=== PATIENT | male | born 1960 | race Caucasian/White ===

== ENCOUNTER 2017-10-08 03:08 | Inpatient (IN) | payer OTHER, SELFPAY ==
[2017-10-08] VITALS (8 sets, daily range): BP systolic 116–163; BP diastolic 73–94; PULSE 67–76; RESP 16–18; TEMP 37–37.9; O2SAT 94–99; BMI 31.5; BMI 31.4
--- NOTE | 2017-10-08 03:24 | CT_ITS ---
STUDY: CT ABDOMEN AND PELVIS WITH CONTRAST REASON FOR EXAM: Male, 56 years old. Pain RADIATION DOSAGE (If Supplied By Facility): CTDIvol = ( 14.04 ) mGy, DLP = ( 980.66 ) mGycm TECHNIQUE: Transaxial images were obtained from the dome of the diaphragm to the symphysis pubis without oral contrast. 100 ml of Isovue 300 contrast was administered. Sagittal and coronal images were reconstructed. Individualized dose optimization techniques were used for this CT. COMPARISON: None. FINDINGS: The visualized lung bases are unremarkable. Mild cardiomegaly. Median sternotomy wires. There is decreased attenuation of the liver consistent with steatosis. Normal gallbladder and extrahepatic biliary system. Normal spleen. Normal pancreas. Pneumoperitoneum. Normal bilateral adrenal glands. Bilateral renal cysts and multiple right sided nonobstructing renal calculi, the largest measuring 5 mm. Normal visualized stomach. Normal small intestine. Acute sigmoid diverticulitis. Perforation is likely present along the medial sigmoid wall. An evolving diverticular abscess is suggested on image 95 of series 2 that measures approximately 3.6 x 3.2 cm. The appendix is visualized and appears normal. Normal abdominal aorta. Normal inferior vena cava. Normal retroperitoneum. Normal urinary bladder. Free pelvic fluid. Normal abdominal wall. Normal osseous structures. CT/Abdomen/Pelvis W IV Cont ONLY IMPRESSION: Acute sigmoid diverticulitis with associated perforation, abscess formation, and pneumoperitoneum. N.B. : The above information has been verbally conveyed by Mekhi Wen MD to Ismael Mike, Covering Physician, on 10/08/2017 05:14:36 (ET). Electronically Signed: Mekhi Wen MD at 5:13 EDT Tel , Service support , N.B. : The above information has been verbally conveyed by Mekhi Wen MD to Ismael Mike, Covering Physician, on 10/08/2017 05:14:36 (ET).
[2017-10-08] MEDS: Ondansetron 4 MG/2 ML Vial IV (03:41)
[2017-10-08] MEDS: Morphine 4 MG/ML Syringe IV (03:41)
[2017-10-08] MEDS: 0.9% Normal Saline 1,000 ML 1000 ML IV (03:41)
[2017-10-08 03:45] LABS: Absolute Lymphocyte Count 0.45 X10^3/ul (0.83-4.51); Absolute Neutrophil Count 9.4 X10^3/uL (2.0-7.7); Basophil# 0.01 X10^3/uL; Basophil% 0.1 % (0-1); Differential Indicated SCAN CRITERIA MET; Eosinophil# 0.01 X10^3/uL; Eosinophils% 0.1 % (0-5); Hematocrit 42.1 % (40-54); Hemoglobin 14.5 g/dl (13.0-16.5); Lymphocyte # 0.45 X10^3/ul (4.0); Lymphocyte % 4.3 % (19-41); Mean Corp Hgb Conc 34.4 g/gl (32-36); Mean Corpuscular Hgb 31.3 pg (27.0-32.0); Mean Corpuscular Volume 90.7 fL (80-94); Mean Platelet Vol. 9.8 fl (6.2-12.0); Monocyte# 0.49 X10^3/uL; Monocyte% 4.7 % (0-10); Neutrophil # 9.44 X10^3/uL (2.7-7.7); Neutrophil % 90.7 % (47-70); POSITIVE COUNT NO; POSITIVE DIFFERENTIAL YES; POSITIVE MORPHOLOGY NO; Platelet Count 198 K/mm3 (150-450); RBC Distribution Width CV 14.5 % (11.6-14.6); RBC Distribution Width SD 48.2 fl (35.1-43.9); Red Blood Count 4.64 M/mm3 (4.6-6.2); White Blood Count 10.4 K/mm3 (4.4-11.0)
[2017-10-08 03:53] LABS: Anion Gap 9 (5-15); BUN 24 mg/dL (7-18); BUN/Creat Ratio 15.4 RATIO (10-20); Calcium,Total 8.9 mg/dL (8.5-10.1); Chloride 106 mmol/L (98-107); Creatinine, Serum 1.56 mg/dL (0.70-1.30); EST Glomerular Filtration Rate 49 mL/min (>60); Est Glom Filt Rate - Afr Amer 60 mL/min (>60); Glucose 151 mg/dL (74-106); Potassium 3.9 mmol/L (3.5-5.1); Sodium Level 143 mmol/L (136-145)
[2017-10-08 04:10] LABS: Differential Comment SCANNED
[2017-10-08 04:40] LABS: Bacteria 0 SEEN /hpf (None Seen); Mucous, Urine 0 SEEN /hpf (<or=2+); Red Blood Cells-Urine 0 SEEN /hpf (0-5); White Blood Cells 0 SEEN /hpf (0-5)
[2017-10-08 04:50] LABS: Color, Urine Yellow (Yellow); Glucose, Dipstick Normal (Normal); Ketone-Dipstick Negative (Negative); Urine Bilirubin Dipstick Negative (Negative); Urine Clarity Sl Cloudy (Clear)
[2017-10-08 04:51] LABS: Leukocyte Esterase-Dipstick Negative /ul (Negative); Nitrite-Dipstick Negative (Negative); Occult Blood-Urine Negative /ul (Negative); Protein-Dipstick 15 mg/dl (Negative); Urine Urobilinogen Normal (Normal)
[2017-10-08 04:55] LABS: Squamous Epithelial Cells - UA 0-5 SEEN /hpf (0-5)
--- NOTE | 2017-10-08 05:28 | ED.DCSUM_ITS ---
- ER Visit Summary Date of Service: 10/08/17 Chief Complaint: Acute left lower quadrant abdominal pain History of Present Illness: The patient is a 56 M who has history of diverticulitis ?2 who presents with acute onset of left lower quadrant pain with discomfort in the abdomen with urination, discomfort with walking or coughing and discomfort with palpation. He denies fever, chills night sweats. Denies any visual, ocular auditory symptoms. Denies chest pain or palpitations. He has a chronic cough. Respiratory otherwise negative. He states he had one loose bowel movement earlier this evening. He denies any back pain. Denies any skin lesions. He has no other complaints. Per review of prior records he has his coronary disease, hypertension, diabetes , diverticulosis/diverticulitis, renal calculus and gout. He does have history of coronary bypass surgery. Physical Examination: Vital signs are unremarkable except for a blood pressure 163/94. He is afebrile. He appears uncomfortable with movement and walking. HEENT exam is remarkable for poor dentition. Trachea midline. Insert cardiopulmonary exam. Abdomen is slightly distended tympanitic with peritonitis especially left lower quadrant. There is no evidence of inguinal lymphadenopathy or hernia. He has no CVA tenderness noted. There is no evidence of trauma. He has no skin lesions. Neuro exam is nonfocal. Test Results: White count is 10.4 thousand with 91 segs. Electro panel is remarkable for a creatinine 1.56 and glucose of 151. UA is unremarkable. CT of the abdomen reveals acute diverticulitis with probable early pelvic abscess and free air. Emergency Department Course and Treatment: IV was established he was medicated with 4 mg of Zofran and 4 mg of morphine. Because he has peritonitis with left lower quadrant pain concern he has diverticulitis and he received 4.5 g of Zosyn IV piggyback. CT of the abdomen was obtained to evaluate for acute diverticulitis. Patient was informed of his test results. Upon further questioning states he had significant pain 2-3 weeks ago. Treatment Plan: Dr. Hinojosa was placed on page since patient has perforation. He will require admission. Will contact the hospitalist as well. Disposition: To be admitted with consultation with hospitalist for admission and surgeon Impression: 1. Acute diverticulitis with perforation 2. Pelvic abscess 3. Hyperglycemia and diabetic 4. Renal insufficiency 5. History of coronary disease This note was generated with Dragon dictation software. It may contain incorrect words, spelling, and punctuation that were not noted in review of the chart prior to signing ED Disposition - Plan for ED Patient: Chief Complaint: Abd Pain Referrals: Care Physician,No Primary [Primary Care Provider] -
--- NOTE | 2017-10-08 06:22 | HP.PCM_ITS ---
Problem List (1) History of heart surgery Status: Chronic (2) Diverticulitis Status: Acute History of Present Illness Date of Admission: 10/08/17 Chief Complaint: abdominal pain The patient is a 56 year old male patient with a significant past medical history of diverticular disease who was in [facility] 3 weeks ago presents with a similar complaint of abdominal pain. Onset of his pain in the left lower quadrant began last night at 10:00pm. He denies feeling nauseous and or short of breath. He denies fevers or chills. CT scan of the abdomen reveals sigmoid diverticulitis that was perforated with pneumoperitoneum present. There is an abscess formation of just over 3cm in diameter in this area as well. The patient last stayed 14 days in the hospital for a similar reason that required percutaneous drainage. Dr boyd has seen and evaluated the patient and requested he be placed on bowel rest and zosyn and he will see the patient in consult. Past Medical History Past Medical History (Chronic Problems): Chronic Problems History of heart surgery (Chronic) Allergies chlorhexidine Allergy (Verified 10/08/17 03:08) Unknown Home Medications: Ambulatory Orders Medication Instructions Recorded Allopurinol [Zyloprim] 300 mg PO DAILY 04/20/15 Amlodipine [Norvasc] mg PO DAILY 04/20/15 Aspirin [Aspirin, Baby] 81 mg PO DAILY@0800 04/20/15 Cardizem 120 mg PO DAILY 04/20/15 Multivitamin,Therapeutic [Thera] 1 each PO DAILY 10/08/17 Surgical History: - - cardiac surgery x 2 to repair VSD and other similar hole unclear if it was a PFO or other, previous percutaneous drainage of diverticular abscess Smoking Status: Former smoker - *Family History Maternal History Items: No pertinent history Review of Systems Constitutional: Denies: Chills, Fever, Weight Change HEENT: Denies: Head Aches, Sinus Congestion, Sinus Drainage Cardiovascular: Denies: Chest Pain, Palpitations Respiratory: Denies: Cough, Shortness of breath at rest, Sputum production Gastrointestinal: Reports: Abdominal Pain. Denies: Nausea, Vomiting Genitourinary: Denies: Dysuria Musculoskeletal: Denies: Joint Pain, Joint Tenderness Skin: Denies: Rash, Wounds Neurological: Denies: Numbness, Tingling, Focal weakness Psychiatric: Denies: Anxiety, Depression, Homicidal Ideations, Suicidal Ideations Hematologic/ Lymphatic: Denies: Easy Bruising, Easy Bleeding VTE Information - Inpt Only VTE Present on Admission: No VTE Mechan Device Prophylaxis: None VTE Pharm Prophylaxis ordered?: Yes Patient Problems: Active and Suspected Problems Diverticulitis (Acute) - Physical Exam General: Alert, Oriented x3, Cooperative HEENT: Atraumatic, Normocephalic Neck: Supple Lungs: Clear to auscultation, Normal air movement, No rhonchi, No wheeze, No rales Cardiovascular: Regular rate, Regular Rhythm, Normal S1, Normal S2, No murmurs Abdomen: Bowel Sounds Present, Soft, Guarding - LLQ, Tender - lower quadrant ( left) Extremities: No edema, Capillary Refill Less than 3 Seconds Skin: No rashes Musculoskeletal: No Tenderness to Palpation of Joints or Extremities Neurological: Neuro grossly intact Psych/Mental Status: Normal Affect, Appropriate Vital Signs Temp Pulse Resp BP Pulse Ox 98.8 F 76 18 158/90 H 96 10/08/17 03:08 10/08/17 05:25 10/08/17 05:25 10/08/17 05:25 10/08/17 05:25 Oxygen Delivery Method Room Air Weight: 195 lb 8.8 oz Body Mass Index (BMI) 31.5 Laboratory Tests Past 24 Hrs 10/08/17 10/08/17 10/08/17 03:30 03:30 04:35 WBC 10.4 RBC 4.64 Hgb 14.5 Hct 42.1 MCV 90.7 MCH 31.3 MCHC 34.4 RDW 14.5 RDW Differential 48.2 H Plt Count 198 MPV 9.8 Immature Gran % (Auto) 0.100 Neut % (Auto) 90.7 H Lymph % (Auto) 4.3 L [place] % (Auto) 4.7 Eos % (Auto) 0.1 Baso % (Auto) 0.1 Absolute Neuts (auto) 9.4 H Absolute Lymphs (auto) 0.45 L Total Counted Not Reportable Differential Comment SCANNED Sodium 143 Potassium 3.9 Chloride 106 Carbon Dioxide 28.0 Anion Gap 9 BUN 24 H Creatinine 1.56 H Est GFR (MDRD) Af Amer 60 Est GFR (MDRD) Non-Af 49 L BUN/Creatinine Ratio 15.4 Glucose 151 H Calcium 8.9 Urine Color Yellow Urine Clarity Sl Cloudy Urine pH 6.0 Ur Specific [place] 1.010 Urine Protein 15 H Urine Glucose (UA) Normal Urine Ketones Negative Urine Occult Blood Negative Urine Nitrite Negative Urine Bilirubin Negative Urine Urobilinogen Normal Ur Leukocyte Esterase Negative Urine RBC 0 SEEN Urine WBC 0 SEEN Ur Squamous Epith Cells 0-5 SEEN Urine Bacteria 0 SEEN Urine Mucus 0 SEEN Assessment/Plan All Active Problems Diverticulitis (Acute) Chronic conditions - Gout - HTN - tobacco abuse (occasional cigar) Plan - admit to medical surgical floor - consult Dr Boyd - NPO - zosyn 3.375 IV q 6hrs - dilaudid 1mg IV q 3 hrs prn pain - zofran 4mg IV q 6 prn - CBC, CMP in am - monitor BP at prn medication IV if necessary - LMWH for DVT prophylaxis - IV D51/2 NS with 20meq KCl at 100cc/hours Code Visit Inpatient E&M: 82481 Init Hosp L3
[2017-10-08] MEDS: HYDROmorphone 0.5 MG/0.5 ML SYRINGE 1 MG IV ×2 (07:44→16:56)
[2017-10-08] MEDS: Enoxaparin 40 MG/0.4 ML Syringe SC (09:52)
--- NOTE | 2017-10-08 11:22 | PCM.PN.BLA ---
Progress Note The patient was admitted earlier today by Dr. Ramirez and I reviewed his H&P. I also saw the patient, evaluated him and obtained relevant history, performed a clinical exam reviewed diagnostic data. This is a 56-year-old male who presented with abdominal pain and found to have acute sigmoid diverticulitis with associated perforation/ abscess. He is currently on IV Zosyn and Dr. Hinojosa has been consulted.
--- NOTE | 2017-10-08 12:33 | CASEMGMT ---
See RN CM Assessment Link. DC PLAN: HOME. No dc needs identified. Kingsley NGUYENN RN ACM
[2017-10-08] MEDS: Piperacil/Tazobactam 3.375 GM/50 ML ML IV ×2 (12:52→21:04)
[2017-10-08] MEDS: 0.9% NaCl Peripheral Flush Adult/Peds IV (16:56)
--- NOTE | 2017-10-08 17:42 | CON.PCM_ITS ---
Reason for Consult Date of Consultation: 10/08/17 History of Present Illness: The patient is a 56 year old M with a complaint of recurring left lower quadrant pain. The patient has had by his own account 3 significant episodes of diverticulitis. most recently, he developed left lower quadrant pain and was admitted to [facility] with a diagnosis of diverticulitis. He understands there was a pericolonic abscess which required percutaneous drainage. He recalls he was in the hospital for 14 days. At discharge, he was recommended that he follow up for colonoscopy as an outpatient and then for consideration of sigmoid resection. He failed follow-up with that visit. He has not hit appears that he underwent CT scan with percutaneous drainage in March. Approximate on April 06, 2017 at [facility].ad a previous colonoscopy. He now presents with a recurring episode of left lower quadrant pain consistent with his previous diverticulitis attacks. He notes no nausea or vomiting. He noted some low-grade fever. CT scan demonstrated sigmoid diverticulitis with what appeared to be extracolonic air and fluid, but not getting organized abscess. He was also negative. A scant amount of free air up around the liver. I was contacted for evaluation, given this history of complicated diverticulitis. the patient has a history of an atrial septal defect and pulmonary artery stenosis. The patient initially had pulmonary artery banding and a ventricular septal defect repair as a child. In 2013. The patient returned with moderately symptomatic shortness of breath, and a larger atrial septal defect along with a stenotic pulmonary artery at the bifurcation. The primary stenosis was noted to be in the right pulmonary artery and the left distal pulmonary artery was dilated. patient underwent reoperation second open heart surgery with atrial septal defect closure and pulmonary artery repair. it appears this repair was performed with running suture and no true graft material was placed. 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 he also has a history of kidney stones, hyperlipidemia, hypertension and gout. Past Medical History Past Medical History (Chronic Problems): Chronic Problems History of heart surgery (Chronic) Allergies chlorhexidine Allergy (Verified 10/08/17 03:08) Unknown Home Medications: Ambulatory Orders Medication Instructions Recorded Allopurinol [Zyloprim] 300 mg PO DAILY 04/20/15 Amlodipine [Norvasc] 2.5 mg PO DAILY 04/20/15 Aspirin [Aspirin, Baby] 81 mg PO DAILY@0800 04/20/15 Diltiazem HCl [Diltiazem ER] 120 mg PO DAILY 10/08/17 Multivitamin,Therapeutic [Thera] 1 each PO DAILY 10/08/17 Surgical History: - - cardiac surgery x 2 to repair VSD and other similar hole unclear if it was a PFO or other, previous percutaneous drainage of diverticular abscess Smoking Status: Former smoker - *Family History Maternal History Items: No pertinent history Review of Systems Constitutional: Reports: Fever, Malaise. Denies: Chills, Weight Change HEENT: Denies: Head Aches, Sinus Congestion, Sinus Drainage Cardiovascular: Denies: Chest Pain, Palpitations Respiratory: Denies: Cough, Shortness of breath at rest, Sputum production Gastrointestinal: Reports: Abdominal Pain. Denies: Nausea, Vomiting Genitourinary: Denies: Dysuria Musculoskeletal: Denies: Joint Pain, Joint Tenderness Skin: Denies: Rash, Wounds Neurological: Denies: Numbness, Tingling, Focal weakness Psychiatric: Denies: Anxiety, Depression, Homicidal Ideations, Suicidal Ideations Hematologic/ Lymphatic: Denies: Easy Bruising, Easy Bleeding Patient Problems: Active and Suspected Problems Diverticulitis (Acute) - Physical Exam General: Alert, Oriented x3, - - somewhat disheveled appearing HEENT: Atraumatic, PERRLA, EOMI, - Oral: - - oropharynx with multiple dentition issues Lungs: Clear to auscultation, Normal air movement Cardiovascular: Regular rate, No murmurs Abdomen: Bowel Sounds Present, Soft, Tender - in the left lower quadrant without diffuse peritoneal signs Vital Signs Temp Pulse Resp BP Pulse Ox 100.3 F H 67 18 130/84 H 99 10/08/17 12:51 10/08/17 12:51 10/08/17 12:51 10/08/17 12:51 10/08/17 12:51 Oxygen Delivery Method Room Air Weight: 88.4 kg Body Mass Index (BMI) 31.4 Intake and Output for Last 24 Hours 10/06/17 10/07/17 10/08/17 23:59 23:59 23:59 Intake Total 494 / 494 Output Total 450 / 450 Balance 44 / 44 Assessment/Plan All Active Problems Diverticulitis (Acute) recurrent diverticulitis with pericolonic abscess-no signs of obstructive pattern. This admission scant extra colonic free air The patient admitted and started on IV antibiotics and bowel rest. We will follow him clinically. I would anticipate that he will require repeat CT scan in the next few days and likely have a percutaneously drainable abscess at that time. This does not appear to be quite ready for drainage currently. I discussed with the patient the fact that it with multiple courses of relatively , diverticulitis, we should really consider resection after this event. Hopefully, he will follow conservative management with IV antibiotics, bowel rest, plus or minus possible percutaneous drainage at which point we'll not have to proceed with urgent resection. we discussed that if his symptoms worsen and he did require urgent exploration, this would might result in a resection with temporary ostomy. 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 His cardiac exam seemed regular. Given his history consider echocardiogram.
[2017-10-09] MEDS: HYDROmorphone 0.5 MG/0.5 ML SYRINGE 1 MG IV ×2 (01:50→21:17)
[2017-10-09 02:02] VITALS: BP 128/73; PULSE 72; RESP 17; TEMP 37; O2SAT 98
[2017-10-09] MEDS: Piperacil/Tazobactam 3.375 GM/50 ML ML IV ×3 (05:04→21:17)
--- NOTE | 2017-10-09 06:19 | ECHOD_ITS ---
Reason For Study: ASD Procedure This was a 2D Doppler, Color Flow transthoracic echocardiogram. Exam performed portable in patient room. Left Ventricle Normal LV size. Mild concentric left ventricular hypertrophy. Left ventricular systolic function is normal. The estimated ejection fraction is 55 %. No evidence for diastolic dysfunction. No regional wall motion abnormalities noted. Mitral Valve Normal mitral valve. Mild (1+) eccentric mitral valve insufficiency. Tricuspid Valve Normal tricuspid valve. Mild (1+) tricuspid valve insufficiency. Pulmonary artery systolic pressure is 29 mmHg. Aortic Valve Cannot exclude bicuspid aortic valve. Great Vessels Mildly dilated aortic root. The pulmonary artery is normal size. Normal inferior vena cava. Pericardium/Pleural No pericardial effusion. MMode/2D Measurements & Calculations LVIDd: 5.3 cm IVSd: 1.2 cm Ao root diam: 3.7 cm LVIDs: 3.4 cm LVPWd: 1.2 cm RVDd: 5.3 cm FS: 36.0 % LAV(MOD-bp): 50.0 ml RVOT diam: 2.0 cm EDV(MOD-sp4): 93.7 ml LAV(MOD-bp) Indexed: 25.3 ml/m2 ESV(MOD-sp4): 39.5 ml LAV(MOD-sp2): 52.7 ml EF(MOD-sp4): 57.8 % LAV(MOD-sp4): 40.3 ml SV(MOD-sp4): 54.2 ml LA A4 area: 16.5 cm2 RA A4 area: 18.7 cm2 Doppler Measurements & Calculations MV E max leander: 84.5 cm/sec Lat Peak E' Leander: 11.9 cm/sec Med Peak E' Leander: 6.6 cm/sec MV A max leander: 76.1 cm/sec E/E' lat: 7.1 E/E' med: 12.7 MV E/A: 1.1 Ao V2 max: 169.0 cm/sec LV V1 max: 119.7 cm/sec PA V2 max: 132.3 cm/sec Ao max P.4 mmHg LV V1 max P.7 mmHg PA max PG (full): 4.8 mmHg Ao V2 mean: 119.4 cm/sec PA V2 mean: 96.1 cm/sec Ao mean P.2 mmHg PA mean PG (full): 2.6 mmHg Ao V2 VTI: 31.8 cm PA V2 VTI: 26.2 cm PI end-d leander: 95.5 cm/sec SV(RVOT): 53.9 ml TR max leander: 254.7 cm/sec TR max P.9 mmHg Interpretation Summary Normal LV size. Mild concentric left ventricular hypertrophy. Left ventricular systolic function is normal. The estimated ejection fraction is 55 %. No evidence for diastolic dysfunction. Mild (1+) tricuspid valve insufficiency. Mildly dilated aortic root. Ordering Physician: Eron Boyd Performed By: Oksana Baltazar, ZENA, RVT
[2017-10-09 06:41] LABS: Absolute Neutrophil Count 6.4 X10^3/uL (2.0-7.7); Basophil# 0.01 X10^3/uL; Basophil% 0.1 % (0-1); Eosinophil# 0.07 X10^3/uL; Eosinophils% 0.9 % (0-5); Hematocrit 38.2 % (40-54); Hemoglobin 12.6 g/dl (13.0-16.5); Lymphocyte % 7.7 % (19-41); Mean Corpuscular Hgb 30.9 pg (27.0-32.0); Mean Corpuscular Volume 93.6 fL (80-94); Mean Platelet Vol. 10.1 fl (6.2-12.0); Monocyte# 0.65 X10^3/uL; Monocyte% 8.4 % (0-10); Neutrophil # 6.43 X10^3/uL (2.7-7.7); Neutrophil % 82.8 % (47-70); Platelet Count 137 K/mm3 (150-450); RBC Distribution Width CV 14.7 % (11.6-14.6); RBC Distribution Width SD 50.2 fl (35.1-43.9); Red Blood Count 4.08 M/mm3 (4.6-6.2); White Blood Count 7.8 K/mm3 (4.4-11.0)
[2017-10-09 06:46] LABS: POSITIVE COUNT NO; POSITIVE MORPHOLOGY NO
[2017-10-09 06:48] LABS: Differential Indicated SCAN CRITERIA MET; POSITIVE DIFFERENTIAL YES
[2017-10-09 06:58] LABS: Differential Comment SCANNED
[2017-10-09 07:01] LABS: AST(SGOT) 19 U/L (15-37); Alanine Aminotransfer ALT/SGPT 35 U/L (16-61); Albumin, Serum 3.3 g/dL (3.2-5.0); Alkaline Phosphatase 91 U/L (45-117); Anion Gap 4 (5-15); BUN 21 mg/dL (7-18); BUN/Creat Ratio 12.7 RATIO (10-20); Calcium,Total 8.1 mg/dL (8.5-10.1); Chloride 108 mmol/L (98-107); Creatinine, Serum 1.65 mg/dL (0.70-1.30); EST Glomerular Filtration Rate 46 mL/min (>60); Est Glom Filt Rate - Afr Amer 56 mL/min (>60); Globulin 3.2 g/dL (2.2-4.2); Glucose 129 mg/dL (74-106); Potassium 3.8 mmol/L (3.5-5.1); Protein, Total 6.5 g/dL (6.4-8.2); Sodium Level 143 mmol/L (136-145)
[2017-10-09 07:12] VITALS: BP 118/76; PULSE 75; RESP 18; TEMP 37.3; O2SAT 95
[2017-10-09] MEDS: Enoxaparin 40 MG/0.4 ML Syringe SC (09:54)
[2017-10-09 13:09] VITALS: BP 114/72; PULSE 74; RESP 18; TEMP 37.5; O2SAT 95
--- NOTE | 2017-10-09 16:28 | PCM.PN.HOSP ---
Patient Problems: Active and Suspected Problems Diverticulitis (Acute) Subjective: CC: Abdominal pain Objective: His abdominal pain has improved, he rates this as 4 out of 10 today, denies any nausea vomiting or diarrhea. He is tolerating IV antibiotics for complicated diverticulitis. Vitals/I&O's: Vital Signs Temp Pulse Resp BP Pulse Ox 99.5 F H 74 18 114/72 95 10/09/17 13:09 10/09/17 13:09 10/09/17 13:09 10/09/17 13:09 10/09/17 13:09 Oxygen Delivery Method Room Air Weight: 88.4 kg Body Mass Index (BMI) 31.4 Intake and Output for Last 24 Hours 10/07/17 10/08/17 10/09/17 23:59 23:59 23:59 Intake Total 1007 / 1007 1892 / 1892 Output Total 800 / 800 1050 / 1050 Balance 207 / 207 842 / 842 General: Alert, Oriented x3 HEENT: Atraumatic Oral: Moist Mucosa Neck: Supple Lungs: Clear to auscultation Cardiovascular: Regular rate, Normal S1, Normal S2 Abdomen: Bowel Sounds Present, Soft, Non Tender, Non-Distended Laboratory Results 10/09/17 05:40: WBC 7.8, RBC 4.08 L, Hgb 12.6 L, Hct 38.2 L, MCV 93.6, MCH 30.9, MCHC 33.0, RDW 14.7 H, RDW Differential 50.2 H, Plt Count 137 L, MPV 10.1, Immature Gran % (Auto) 0.100, Neut % (Auto) 82.8 H, Lymph % (Auto) 7.7 L, [place] % (Auto) 8.4, Eos % (Auto) 0.9, Baso % (Auto) 0.1, Absolute Neuts (auto) 6.4, Absolute Lymphs (auto) 0.60 L, Total Counted Not Reportable, Differential Comment SCANNED 10/09/17 05:40: Sodium 143, Potassium 3.8, Chloride 108 H, Carbon Dioxide 31.0, Anion Gap 4 L, BUN 21 H, Creatinine 1.65 H, Est GFR (MDRD) Af Amer 56 L, Est GFR (MDRD) Non-Af 46 L, BUN/Creatinine Ratio 12.7, Glucose 129 H, Calcium 8.1 L, Total Bilirubin 1.40 H, AST 19, ALT 35, Alkaline Phosphatase 91, Total Protein 6.5, Albumin 3.3, Globulin 3.2, Albumin/Globulin Ratio 1.0 Current Medications Enoxaparin Sodium (Lovenox) 40 mg SC DAILY@1000 RENUKA Last Admin: 10/09/17 09:54 Dose: 40 mg Hydromorphone HCl (Dilaudid Inj) 1 mg IV Q3H PRN PRN PRN Reason: SEVERE PAIN (6-10/10) Last Admin: 10/09/17 01:50 Dose: 1 mg Potassium Chloride/Dextrose/Sod Cl (Kcl 20meq In D5.45ns 1000ml) 1,000 mls @ 100 mls/hr IV .Q10H [facility] Last Admin: 10/09/17 12:00 Dose: 100 mls/hr Piperacillin Sod/Tazobactam Sod (Zosyn) 3.375 gm in 50 mls @ 12.5 mls/hr IV Q8 [facility] Last Admin: 10/09/17 13:12 Dose: 12.5 mls/hr Magnesium Hydroxide (Milk Of Magnesia) 30 ml PO DAILY PRN PRN PRN Reason: Constipation Ondansetron HCl (Zofran) 4 mg IV Q6H PRN PRN PRN Reason: NAUSEA Sodium Chloride () 5 - 30 ml IV UD PRN PRN Reason: SALINE FLUSH Last Admin: 10/08/17 16:56 Dose: 10 ml Medical Necessity - Tobacco Use Smoking Status: Former smoker Assessment/Plan All Active Problems Diverticulitis (Acute) 1. Acute complicated diverticulitis; we will continue bowel rest, IV Zosyn and IVF, we will repeat CT scan of the abdomen in the next 24-48 hours. 2. history of an atrial septal defect and pulmonary artery stenosis; status post open repair. He remained stable and has no symptoms of heart failure. Echocardiogram showed normal EF and no structural abnormalities. 3. history of wide complex tachycardia s/p RFA in 2011. 4. Acute kidney injury; chronicity unknown, we will continue IV fluids and avoid potential nephrotoxic agents. 5. DVT prophylaxis with Lovenox. Code Visit Inpatient E&M: 60944 [facility] Hosp L3
--- NOTE | 2017-10-09 16:34 | PN_ITS ---
Patient Problems: Active and Suspected Problems Diverticulitis (Acute) Subjective: CC: Abdominal pain Objective: His abdominal pain has improved, he rates this as 4 out of 10 today, denies any nausea vomiting or diarrhea. He is tolerating IV antibiotics for complicated diverticulitis. Vitals/I&O's: Vital Signs Temp Pulse Resp BP Pulse Ox 99.5 F H 74 18 114/72 95 10/09/17 13:09 10/09/17 13:09 10/09/17 13:09 10/09/17 13:09 10/09/17 13:09 Oxygen Delivery Method Room Air Weight: 88.4 kg Body Mass Index (BMI) 31.4 Intake and Output for Last 24 Hours 10/07/17 10/08/17 10/09/17 23:59 23:59 23:59 Intake Total 1007 / 1007 1892 / 1892 Output Total 800 / 800 1050 / 1050 Balance 207 / 207 842 / 842 General: Alert, Oriented x3 HEENT: Atraumatic Oral: Moist Mucosa Neck: Supple Lungs: Clear to auscultation Cardiovascular: Regular rate, Normal S1, Normal S2 Abdomen: Bowel Sounds Present, Soft, Non Tender, Non-Distended Laboratory Results 10/09/17 05:40: WBC 7.8, RBC 4.08 L, Hgb 12.6 L, Hct 38.2 L, MCV 93.6, MCH 30.9 , MCHC 33.0, RDW 14.7 H, RDW Differential 50.2 H, Plt Count 137 L, MPV 10.1, Immature Gran % (Auto) 0.100, Neut % (Auto) 82.8 H, Lymph % (Auto) 7.7 L, [place] % (Auto) 8.4, Eos % (Auto) 0.9, Baso % (Auto) 0.1, Absolute Neuts (auto) 6.4, Absolute Lymphs (auto) 0.60 L, Total Counted Not Reportable, Differential Comment SCANNED 10/09/17 05:40: Sodium 143, Potassium 3.8, Chloride 108 H, Carbon Dioxide 31.0, Anion Gap 4 L, BUN 21 H, Creatinine 1.65 H, Est GFR (MDRD) Af Amer 56 L, Est GFR (MDRD) Non-Af 46 L, BUN/Creatinine Ratio 12.7, Glucose 129 H, Calcium 8.1 L , Total Bilirubin 1.40 H, AST 19, ALT 35, Alkaline Phosphatase 91, Total Protein 6.5, Albumin 3.3, Globulin 3.2, Albumin/Globulin Ratio 1.0 Current Medications Enoxaparin Sodium (Lovenox) 40 mg SC DAILY@1000 [facility]A Last Admin: 10/09/17 09:54 Dose: 40 mg Hydromorphone HCl (Dilaudid Inj) 1 mg IV Q3H PRN PRN PRN Reason: SEVERE PAIN (6-10/10) Last Admin: 10/09/17 01:50 Dose: 1 mg Potassium Chloride/Dextrose/Sod Cl (Kcl 20meq In D5.45ns 1000ml) 1,000 mls @ 100 mls/hr IV .Q10H [facility] Last Admin: 10/09/17 12:00 Dose: 100 mls/hr Piperacillin Sod/Tazobactam Sod (Zosyn) 3.375 gm in 50 mls @ 12.5 mls/hr IV Q8 [facility] Last Admin: 10/09/17 13:12 Dose: 12.5 mls/hr Magnesium Hydroxide (Milk Of Magnesia) 30 ml PO DAILY PRN PRN PRN Reason: Constipation Ondansetron HCl (Zofran) 4 mg IV Q6H PRN PRN PRN Reason: NAUSEA Sodium Chloride () 5 - 30 ml IV UD PRN PRN Reason: SALINE FLUSH Last Admin: 10/08/17 16:56 Dose: 10 ml Medical Necessity - Tobacco Use Smoking Status: Former smoker Assessment/Plan All Active Problems Diverticulitis (Acute) 1. Acute complicated diverticulitis; we will continue bowel rest, IV Zosyn and IVF, we will repeat CT scan of the abdomen in the next 24-48 hours. 2. history of an atrial septal defect and pulmonary artery stenosis; status post open repair. He remained stable and has no symptoms of heart failure. Echocardiogram showed normal EF and no structural abnormalities. 3. history of wide complex tachycardia s/p RFA in 2011. 4. Acute kidney injury; chronicity unknown, we will continue IV fluids and avoid potential nephrotoxic agents. 5. DVT prophylaxis with Lovenox. Code Visit Inpatient E&M: 07574 [facility] L3
[2017-10-09 17:15] VITALS: BP 128/88; PULSE 73; RESP 18; TEMP 37.3; O2SAT 97
--- NOTE | 2017-10-09 19:31 | PCM.PN.SRG ---
Patient Problems: Active and Suspected Problems Diverticulitis (Acute) Subjective: minimal pain, hungry - Physical Exam General: Alert, Oriented x3 Lungs: Clear to auscultation, Normal air movement Cardiovascular: Regular rate, Regular Rhythm Abdomen: Bowel Sounds Present, Soft, Non Tender Vital Signs Temp Pulse Resp BP Pulse Ox 99.1 F 73 18 128/88 H 97 10/09/17 17:15 10/09/17 17:15 10/09/17 17:15 10/09/17 17:15 10/09/17 17:15 Oxygen Delivery Method Room Air Weight: 88.4 kg Body Mass Index (BMI) 31.4 Intake and Output for Last 24 Hours 10/07/17 10/08/17 10/09/17 23:59 23:59 23:59 Intake Total 1007 / 1007 2807 / 2807 Output Total 800 / 800 1375 / 1375 Balance 207 / 207 1432 / 1432 Laboratory Tests Past 24 Hrs 10/09/17 10/09/17 05:40 05:40 WBC 7.8 RBC 4.08 L Hgb 12.6 L Hct 38.2 L MCV 93.6 MCH 30.9 MCHC 33.0 RDW 14.7 H RDW Differential 50.2 H Plt Count 137 L MPV 10.1 Immature Gran % (Auto) 0.100 Neut % (Auto) 82.8 H Lymph % (Auto) 7.7 L [place] % (Auto) 8.4 Eos % (Auto) 0.9 Baso % (Auto) 0.1 Absolute Neuts (auto) 6.4 Absolute Lymphs (auto) 0.60 L Total Counted Not Reportable Differential Comment SCANNED Sodium 143 Potassium 3.8 Chloride 108 H Carbon Dioxide 31.0 Anion Gap 4 L BUN 21 H Creatinine 1.65 H Est GFR (MDRD) Af Amer 56 L Est GFR (MDRD) Non-Af 46 L BUN/Creatinine Ratio 12.7 Glucose 129 H Calcium 8.1 L Total Bilirubin 1.40 H AST 19 ALT 35 Alkaline Phosphatase 91 Total Protein 6.5 Albumin 3.3 Globulin 3.2 Albumin/Globulin Ratio 1.0 Medical Necessity - Tobacco Use Smoking Status: Former smoker Assessment/Plan All Active Problems Diverticulitis (Acute) recurrent diverticulitis with pericolonic abscess-no signs of obstructive pattern. This admission scant extra colonic free air The patient admitted and started on IV antibiotics and bowel rest. We will follow him clinically. I would anticipate that he will require repeat CT scan in the next few days and likely have a percutaneously drainable abscess at that time. This does not appear to be quite ready for drainage currently. I discussed with the patient the fact that it with multiple courses of relatively, diverticulitis, we should really consider resection after this event. Hopefully, he will follow conservative management with IV antibiotics, bowel rest, plus or minus possible percutaneous drainage at which point we'll not have to proceed with urgent resection. we discussed that if his symptoms worsen and he did require urgent exploration, this would might result in a resection with temporary ostomy. 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 His cardiac exam seemed regular. Given his history consider echocardiogram. patient having minimal pain today and normalization of white count. I'm okay starting clear liquids.
[2017-10-10 02:40] VITALS: BP 128/78; PULSE 75; RESP 18; TEMP 37.1; O2SAT 97
[2017-10-10] MEDS: Piperacil/Tazobactam 3.375 GM/50 ML ML IV ×3 (06:05→22:11)
[2017-10-10 06:49] LABS: Anion Gap 5 (5-15); BUN 12 mg/dL (7-18); BUN/Creat Ratio 8.5 RATIO (10-20); Calcium,Total 8.3 mg/dL (8.5-10.1); Chloride 106 mmol/L (98-107); Creatinine, Serum 1.41 mg/dL (0.70-1.30); EST Glomerular Filtration Rate 56 mL/min (>60); Est Glom Filt Rate - Afr Amer 67 mL/min (>60); Estimated Creatinine Clearance 54.05 ml/min; Glucose 105 mg/dL (74-106); Potassium 3.9 mmol/L (3.5-5.1); Sodium Level 139 mmol/L (136-145)
[2017-10-10 06:58] LABS: Absolute Lymphocyte Count 0.51 X10^3/ul (0.83-4.51); Absolute Neutrophil Count 4.2 X10^3/uL (2.0-7.7); Eosinophils% 1.9 % (0-5); Hematocrit 37.5 % (40-54); Hemoglobin 12.6 g/dl (13.0-16.5); Lymphocyte # 0.51 X10^3/ul (4.0); Lymphocyte % 9.6 % (19-41); Mean Corp Hgb Conc 33.6 g/gl (32-36); Mean Corpuscular Hgb 31.2 pg (27.0-32.0); Mean Corpuscular Volume 92.8 fL (80-94); Mean Platelet Vol. 10.3 fl (6.2-12.0); Monocyte# 0.47 X10^3/uL; Monocyte% 8.9 % (0-10); Neutrophil # 4.22 X10^3/uL (2.7-7.7); Neutrophil % 79.6 % (47-70); Platelet Count 142 K/mm3 (150-450); RBC Distribution Width SD 46.2 fl (35.1-43.9); Red Blood Count 4.04 M/mm3 (4.6-6.2); White Blood Count 5.3 K/mm3 (4.4-11.0)
[2017-10-10 07:15] LABS: Differential Indicated SCAN CRITERIA MET; POSITIVE COUNT NO; POSITIVE DIFFERENTIAL YES; POSITIVE MORPHOLOGY NO
[2017-10-10 07:19] LABS: Differential Comment SCANNED
[2017-10-10 07:58] VITALS: BP 127/78; PULSE 68; RESP 16; TEMP 36.7; O2SAT 96
[2017-10-10] MEDS: Enoxaparin 40 MG/0.4 ML Syringe SC (09:24)
[2017-10-10 11:42] VITALS: BP 146/95; PULSE 75; RESP 16; TEMP 36.8; O2SAT 98
[2017-10-10 14:06] VITALS: BP 119/79; PULSE 69; RESP 16; TEMP 36.8; O2SAT 98
--- NOTE | 2017-10-10 15:06 | PN_ITS ---
Patient Problems: Active and Suspected Problems Diverticulitis (Acute) Subjective: Cc: Abdominal pain Objective: This is a 56-year-old male who presented with abdominal pain and found to have acute sigmoid diverticulitis with associated perforation/ abscess. He is currently on IV Zosyn, is improving, he rates his pain today as 2 out of 10, he is tolerating clear liquid diet. Vitals/I&O's: Vital Signs Temp Pulse Resp BP Pulse Ox 98.2 F 69 16 119/79 98 10/10/17 14:06 10/10/17 14:06 10/10/17 14:06 10/10/17 14:06 10/10/17 14:06 Oxygen Delivery Method Room Air Weight: 88.4 kg Body Mass Index (BMI) 31.4 Intake and Output for Last 24 Hours 10/08/17 10/09/17 10/10/17 23:59 23:59 23:59 Intake Total 1007 / 1007 2807 / 2807 3246 / 3246 Output Total 800 / 800 1375 / 1375 1300 / 1300 Balance 207 / 207 1432 / 1432 1946 / 1946 General: Alert, Oriented x3 Neck: Supple, No JVD Lungs: Clear to auscultation Cardiovascular: Regular rate, Normal S1, Normal S2 Abdomen: Bowel Sounds Present Extremities: No edema Laboratory Results 10/10/17 05:54: Sodium 139, Potassium 3.9, Chloride 106, Carbon Dioxide 28.0, Anion Gap 5, BUN 12, Creatinine 1.41 H, Estim Creat Clear Calc 54.05, Est GFR ( MDRD) Af Amer 67, Est GFR (MDRD) Non-Af 56 L, BUN/Creatinine Ratio 8.5 L, Glucose 105, Calcium 8.3 L 10/10/17 05:54: WBC 5.3, RBC 4.04 L, Hgb 12.6 L, Hct 37.5 L, MCV 92.8, MCH 31.2 , MCHC 33.6, RDW 14.0, RDW Differential 46.2 H, Plt Count 142 L, MPV 10.3, Immature Gran % (Auto) 0.000, Neut % (Auto) 79.6 H, Lymph % (Auto) 9.6 L, [place] % (Auto) 8.9, Eos % (Auto) 1.9, Baso % (Auto) 0.0, Absolute Neuts (auto) 4.2, Absolute Lymphs (auto) 0.51 L, Total Counted Not Reportable, Differential Comment SCANNED Current Medications Enoxaparin Sodium (Lovenox) 40 mg SC DAILY@1000 [facility] Last Admin: 10/10/17 09:24 Dose: 40 mg Hydromorphone HCl (Dilaudid Inj) 1 mg IV Q3H PRN PRN PRN Reason: SEVERE PAIN (6-10/10) Last Admin: 10/09/17 21:17 Dose: 1 mg Potassium Chloride/Dextrose/Sod Cl (Kcl 20meq In D5.45ns 1000ml) 1,000 mls @ 100 mls/hr IV .Q10H [facility] Last Admin: 10/10/17 06:05 Dose: 100 mls/hr Piperacillin Sod/Tazobactam Sod (Zosyn) 3.375 gm in 50 mls @ 12.5 mls/hr IV Q8 [facility] Last Admin: 10/10/17 14:04 Dose: 12.5 mls/hr Magnesium Hydroxide (Milk Of Magnesia) 30 ml PO DAILY PRN PRN PRN Reason: Constipation Ondansetron HCl (Zofran) 4 mg IV Q6H PRN PRN PRN Reason: NAUSEA Sodium Chloride () 5 - 30 ml IV UD PRN PRN Reason: SALINE FLUSH Last Admin: 10/08/17 16:56 Dose: 10 ml Medical Necessity - Tobacco Use Smoking Status: Former smoker Assessment/Plan All Active Problems Diverticulitis (Acute) 1. Acute complicated diverticulitis; we will IV Zosyn , he is tolerating clear liquid diet, we will repeat CT scan of the abdomen in AM. 2. history of an atrial septal defect and pulmonary artery stenosis; status post open repair. He remains stable and has no symptoms of heart failure. Echocardiogram showed normal EF and no structural abnormalities. 3. history of wide complex tachycardia s/p RFA in 2011. 4. Acute kidney injury; chronicity unknown, we will continue IV fluids and avoid potential nephrotoxic agents. 5. DVT prophylaxis with Lovenox.
[2017-10-10] MEDS: 0.9% Normal Saline 1,000 ML 60 ML IV (15:21)
--- NOTE | 2017-10-10 18:28 | PN.SURG_ITS ---
Patient Problems: Active and Suspected Problems Diverticulitis (Acute) Subjective: Tolerating liquids, mild pain - Physical Exam General: Alert, Oriented x3, Cooperative Lungs: Clear to auscultation, Normal air movement Cardiovascular: Regular rate, No murmurs Abdomen: Bowel Sounds Present, Soft, Tender - LLQ - improved Vital Signs Temp Pulse Resp BP Pulse Ox 98.2 F 69 16 119/79 98 10/10/17 14:06 10/10/17 14:06 10/10/17 14:06 10/10/17 14:06 10/10/17 14:06 Oxygen Delivery Method Room Air Weight: 88.4 kg Body Mass Index (BMI) 31.4 Intake and Output for Last 24 Hours 10/08/17 10/09/17 10/10/17 23:59 23:59 23:59 Intake Total 1007 / 1007 2807 / 2807 3246 / 3246 Output Total 800 / 800 1375 / 1375 1300 / 1300 Balance 207 / 207 1432 / 1432 1946 / 1946 Laboratory Tests Past 24 Hrs 10/10/17 10/10/17 05:54 05:54 WBC 5.3 RBC 4.04 L Hgb 12.6 L Hct 37.5 L MCV 92.8 MCH 31.2 MCHC 33.6 RDW 14.0 RDW Differential 46.2 H Plt Count 142 L MPV 10.3 Immature Gran % (Auto) 0.000 Neut % (Auto) 79.6 H Lymph % (Auto) 9.6 L [place] % (Auto) 8.9 Eos % (Auto) 1.9 Baso % (Auto) 0.0 Absolute Neuts (auto) 4.2 Absolute Lymphs (auto) 0.51 L Total Counted Not Reportable Differential Comment SCANNED Sodium 139 Potassium 3.9 Chloride 106 Carbon Dioxide 28.0 Anion Gap 5 BUN 12 Creatinine 1.41 H Estim Creat Clear Calc 54.05 Est GFR (MDRD) Af Amer 67 Est GFR (MDRD) Non-Af 56 L BUN/Creatinine Ratio 8.5 L Glucose 105 Calcium 8.3 L Medical Necessity - Tobacco Use Smoking Status: Former smoker Assessment/Plan All Active Problems Diverticulitis (Acute) recurrent diverticulitis with pericolonic abscess-no signs of obstructive pattern. This admission scant extra colonic free air The patient admitted and started on IV antibiotics and bowel rest. We will follow him clinically. I would anticipate that he will require repeat CT scan in the next few days and likely have a percutaneously drainable abscess at that time. This does not appear to be quite ready for drainage currently. I discussed with the patient the fact that it with multiple courses of relatively , diverticulitis, we should really consider resection after this event. Hopefully, he will follow conservative management with IV antibiotics, bowel rest, plus or minus possible percutaneous drainage at which point we'll not have to proceed with urgent resection. we discussed that if his symptoms worsen and he did require urgent exploration, this would might result in a resection with temporary ostomy. 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 His cardiac exam seemed regular. Given his history consider echocardiogram. patient having minimal pain today and normalization of white count. I'm okay starting clear liquids. plan for follow-up CAT scan tomorrow. If this appears stable I would recommend transitioning to oral antibiotics and plan for discharge. If this is worsening, I recommend percutanteous drainage
[2017-10-10 20:00] VITALS: BP 138/93; PULSE 66; RESP 18; TEMP 36.7; O2SAT 100
[2017-10-10] MEDS: amLODIPine 2.5 MG Tablet PO (22:11)
[2017-10-10] MEDS: dilTIAZem CD 120 MG Capsule PO (22:11)
[2017-10-11 02:00] VITALS: BP 116/79; PULSE 64; RESP 16; TEMP 36.7; O2SAT 95
[2017-10-11 06:07] LABS: Anion Gap 8 (5-15); BUN 12 mg/dL (7-18); BUN/Creat Ratio 8.6 RATIO (10-20); Calcium,Total 8.6 mg/dL (8.5-10.1); Chloride 105 mmol/L (98-107); Creatinine, Serum 1.39 mg/dL (0.70-1.30); EST Glomerular Filtration Rate 56 mL/min (>60); Est Glom Filt Rate - Afr Amer 68 mL/min (>60); Estimated Creatinine Clearance 54.82 ml/min; Glucose 86 mg/dL (74-106); Potassium 3.6 mmol/L (3.5-5.1); Sodium Level 142 mmol/L (136-145)
[2017-10-11 06:08] LABS: Absolute Lymphocyte Count 0.54 X10^3/ul (0.83-4.51); Absolute Neutrophil Count 2.9 X10^3/uL (2.0-7.7); Basophil# 0.01 X10^3/uL; Basophil% 0.3 % (0-1); Eosinophil# 0.11 X10^3/uL; Eosinophils% 2.8 % (0-5); Hematocrit 38.1 % (40-54); Hemoglobin 13.2 g/dl (13.0-16.5); Lymphocyte # 0.54 X10^3/ul (4.0); Lymphocyte % 13.6 % (19-41); Mean Corp Hgb Conc 34.6 g/gl (32-36); Mean Corpuscular Hgb 31.7 pg (27.0-32.0); Mean Corpuscular Volume 91.4 fL (80-94); Mean Platelet Vol. 10.3 fl (6.2-12.0); Monocyte# 0.39 X10^3/uL; Monocyte% 9.8 % (0-10); Neutrophil # 2.93 X10^3/uL (2.7-7.7); Neutrophil % 73.5 % (47-70); Platelet Count 172 K/mm3 (150-450); RBC Distribution Width CV 13.8 % (11.6-14.6); RBC Distribution Width SD 45.4 fl (35.1-43.9); Red Blood Count 4.17 M/mm3 (4.6-6.2)
[2017-10-11 06:10] LABS: Differential Indicated SCAN CRITERIA MET; POSITIVE COUNT NO; POSITIVE DIFFERENTIAL YES; POSITIVE MORPHOLOGY NO
[2017-10-11 06:21] LABS: Differential Comment SCANNED
[2017-10-11] MEDS: Piperacil/Tazobactam 3.375 GM/50 ML ML IV (06:37)
--- NOTE | 2017-10-11 07:00 | CT_ITS ---
STUDY: CT ABDOMEN AND PELVIS WITH CONTRAST REASON FOR EXAM: Male, 56 years old. Diverticulitis. Diarrhea. RADIATION DOSAGE (If Supplied By Facility): CTDIvol = ( 15.62 ) mGy, DLP = ( 972.09 ) mGycm TECHNIQUE: Transaxial images were obtained from the dome of the diaphragm to the symphysis pubis without oral contrast. 100 ml of Isovue 300 contrast was administered. Sagittal and coronal images were reconstructed. Individualized dose optimization techniques were used for this CT. COMPARISON: None. FINDINGS: The visualized lung bases are unremarkable. Mild cardiomegaly. Median sternotomy wires. There is decreased attenuation of the liver consistent with steatosis. Normal gallbladder and extrahepatic biliary system. Normal spleen. Normal pancreas. Pneumoperitoneum. Normal bilateral adrenal glands. Bilateral renal cysts and multiple right sided nonobstructing renal calculi, the largest measuring 5 mm. Normal visualized stomach. Normal small intestine. Acute sigmoid diverticulitis. It appears improved since the previous study since the free air bubbles have decreased in size the fat stranding appears stable The appendix is visualized and appears normal. Normal abdominal aorta. Normal inferior vena cava. Normal retroperitoneum. Normal urinary bladder. Free pelvic fluid. Normal abdominal wall. Normal osseous structures. CT/Abdomen/Pelvis WITH Contrast IMPRESSION: Sigmoid diverticulitis is slightly improved since the previous study. Electronically Signed: Miguel Guadalupe MD at 10:00 EDT Tel , Service support ,
[2017-10-11 08:00] VITALS: BP 137/97; PULSE 73; RESP 18; TEMP 36.8; O2SAT 98
[2017-10-11] MEDS: Allopurinol 300 MG Tablet PO (08:08)
[2017-10-11] MEDS: Aspirin 81 MG TAB.CHEW PO (08:08)
[2017-10-11] MEDS: amLODIPine 2.5 MG Tablet PO (10:16)
[2017-10-11] MEDS: dilTIAZem CD 120 MG Capsule PO (10:17)
[2017-10-11] MEDS: Enoxaparin 40 MG/0.4 ML Syringe SC (10:17)
--- NOTE | 2017-10-11 10:50 | PCM.PN.SRG ---
Patient Problems: Active and Suspected Problems Diverticulitis (Acute) Objective: minimal pain, hungry - Physical Exam General: Alert, Oriented x3, Cooperative Lungs: Clear to auscultation, Normal air movement Cardiovascular: Regular rate, No murmurs Abdomen: Bowel Sounds Present, Soft, Tender - - minimal LLQ Vital Signs Temp Pulse Resp BP Pulse Ox 98.2 F 73 18 137/97 H 98 10/11/17 08:00 10/11/17 08:00 10/11/17 08:00 10/11/17 08:00 10/11/17 08:00 Oxygen Delivery Method Room Air Weight: 88.4 kg Body Mass Index (BMI) 31.4 Intake and Output for Last 24 Hours 10/09/17 10/10/17 10/11/17 23:59 23:59 23:59 Intake Total 2807 / 2807 3246 / 3246 1824 / 1824 Output Total 1375 / 1375 1300 / 1300 1150 / 1150 Balance 1432 / 1432 1946 / 1946 674 / 674 Laboratory Tests Past 24 Hrs 10/11/17 10/11/17 05:30 05:30 WBC 4.0 L RBC 4.17 L Hgb 13.2 Hct 38.1 L MCV 91.4 MCH 31.7 MCHC 34.6 RDW 13.8 RDW Differential 45.4 H Plt Count 172 MPV 10.3 Immature Gran % (Auto) 0.000 Neut % (Auto) 73.5 H Lymph % (Auto) 13.6 L [place] % (Auto) 9.8 Eos % (Auto) 2.8 Baso % (Auto) 0.3 Absolute Neuts (auto) 2.9 Absolute Lymphs (auto) 0.54 L Total Counted Not Reportable Differential Comment SCANNED Sodium 142 Potassium 3.6 Chloride 105 Carbon Dioxide 29.0 Anion Gap 8 BUN 12 Creatinine 1.39 H Estim Creat Clear Calc 54.82 Est GFR (MDRD) Af Amer 68 Est GFR (MDRD) Non-Af 56 L BUN/Creatinine Ratio 8.6 L Glucose 86 Calcium 8.6 Medical Necessity - Tobacco Use Smoking Status: Former smoker Assessment/Plan All Active Problems Diverticulitis (Acute) recurrent diverticulitis with pericolonic abscess-no signs of obstructive pattern. This admission scant extra colonic free air The patient admitted and started on IV antibiotics and bowel rest. We will follow him clinically. I would anticipate that he will require repeat CT scan in the next few days and likely have a percutaneously drainable abscess at that time. This does not appear to be quite ready for drainage currently. I discussed with the patient the fact that it with multiple courses of relatively, diverticulitis, we should really consider resection after this event. Hopefully, he will follow conservative management with IV antibiotics, bowel rest, plus or minus possible percutaneous drainage at which point we'll not have to proceed with urgent resection. we discussed that if his symptoms worsen and he did require urgent exploration, this would might result in a resection with temporary ostomy. 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 His cardiac exam seemed regular. Given his history consider echocardiogram. patient having minimal pain today and normalization of white count. I'm okay starting clear liquids. CAT scan this morning demonstrated no drainable abscess. I recommend transitioning to oral antibiotics and plan for discharge. He should stay on clear liquids until his pain is resolved. I would like him to follow-up in my office in 2 weeks.
--- NOTE | 2017-10-11 11:57 | PCM.DC ---
- Discharge Diagnoses Current Active Problems: Current Active and Chronic Problems History of heart surgery (Chronic) Diverticulitis (Acute) You will use the following diet at home:: Regular Discharge Activity: Return to Normal Activity Allergies/Adverse Reactions: Allergies chlorhexidine Allergy (Verified 10/08/17 03:08) Unknown Medications to take at Discharge Allopurinol [Zyloprim] 300 mg PO DAILY 04/20/15 Amlodipine [Norvasc] 2.5 mg PO DAILY 04/20/15 Aspirin [Aspirin, Baby] 81 mg PO DAILY@0800 04/20/15 Diltiazem HCl [Diltiazem ER] 120 mg PO DAILY 10/08/17 Multivitamin,Therapeutic [Thera] 1 each PO DAILY 10/08/17 Amoxicillin/Potassium Clav [Augmentin 875-125 Tablet] 1 ea PO BID #20 tab 10/11/17 The following prescriptions were given: Amoxicillin/Potassium Clav [Augmentin 875-125 Tablet] 1 ea PO BID #20 tab Primary Care Physician: Care Physician,No Primary [Primary Care Provider] - Within 2 Weeks Proposed Discharge Date: 10/11/17
--- NOTE | 2017-10-11 11:59 | PCM.DC.SUM ---
Discharge Date and Diagnosis Date of Admission: 10/08/17 Date of Discharge: 10/11/17 - Primary Discharge Diagnosis Active and Suspected Problems Diverticulitis (Acute) - Secondary Discharge Diagnosis Chronic Problems History of heart surgery (Chronic) Hospital Course and Treatment Imaging Results: 10/11/17 07:00 CT Abd [Abdomen/Pelvis WITH Contrast] [CT] Routine Summary of Care Provided: This is a 56 year old M with history of diverticulitis who presented with left lower quadrant pain. The patient has had 3 significant episodes of diverticulitis. most recently, he developed left lower quadrant pain and was admitted to [facility] with a diagnosis of diverticulitis. CT scan done in the emergency room showed acute diverticulitis with associated perforation and abscess. He was started on IV Zosyn and Dr. Hinojosa was consulted. Recommended continued antibiotics and repeating a CT scan of the abdomen in few days. It has improved clinically and repeat CT scan shows some improvement. The patient was started on clear liquids and discharged home on Augmentin and he will follow-up with Dr. Hinojosa in 2 weeks. We did colonoscopy and further management. 1. Acute complicated diverticulitis; treated with IV Zosyn and discharged on p.o. Augmentin. 2. history of an atrial septal defect and pulmonary artery stenosis; status post open repair. He remains stable and has no symptoms of heart failure. Echocardiogram showed normal EF and no structural abnormalities. 3. history of wide complex tachycardia s/p RFA in 2011. 4. Acute kidney injury; improved renal parameters. Discharge Diet: No Restrictions Discharge Activity: Return to Normal Activity Home Medications: Medications to take at Discharge Allopurinol [Zyloprim] 300 mg PO DAILY 04/20/15 Amlodipine [Norvasc] 2.5 mg PO DAILY 04/20/15 Aspirin [Aspirin, Baby] 81 mg PO DAILY@0800 04/20/15 Diltiazem HCl [Diltiazem ER] 120 mg PO DAILY 10/08/17 Multivitamin,Therapeutic [Thera] 1 each PO DAILY 10/08/17 Amoxicillin/Potassium Clav [Augmentin 875-125 Tablet] 1 ea PO BID #20 tab 10/11/17 Following Prescrptions Were Given to Patient: Amoxicillin/Potassium Clav [Augmentin 875-125 Tablet] 1 ea PO BID #20 tab Primary Care Physician: Care Physician,No Primary [Primary Care Provider] - Within 2 Weeks Medical Necessity - Tobacco Use Smoking Status: Former smoker Meaningful Use Info Meaningful Use Diagnoses (Choose all that apply): None applicable Code Visit Inpatient E&M: 54082 [facility] H[facility]
--- NOTE | 2017-10-11 12:11 | DS.PCM_ITS ---
Discharge Date and Diagnosis Date of Admission: 10/08/17 Date of Discharge: 10/11/17 - Primary Discharge Diagnosis Active and Suspected Problems Diverticulitis (Acute) - Secondary Discharge Diagnosis Chronic Problems History of heart surgery (Chronic) Hospital Course and Treatment Imaging Results: 10/11/17 07:00 CT Abd [Abdomen/Pelvis WITH Contrast] [CT] Routine Summary of Care Provided: This is a 56 year old M with history of diverticulitis who presented with left lower quadrant pain. The patient has had 3 significant episodes of diverticulitis. most recently, he developed left lower quadrant pain and was admitted to [facility] with a diagnosis of diverticulitis. CT scan done in the emergency room showed acute diverticulitis with associated perforation and abscess. He was started on IV Zosyn and Dr. Hinojosa was consulted. Recommended continued antibiotics and repeating a CT scan of the abdomen in few days. It has improved clinically and repeat CT scan shows some improvement. The patient was started on clear liquids and discharged home on Augmentin and he will follow -up with Dr. Hinojosa in 2 weeks. We did colonoscopy and further management. 1. Acute complicated diverticulitis; treated with IV Zosyn and discharged on p.o. Augmentin. 2. history of an atrial septal defect and pulmonary artery stenosis; status post open repair. He remains stable and has no symptoms of heart failure. Echocardiogram showed normal EF and no structural abnormalities. 3. history of wide complex tachycardia s/p RFA in 2011. 4. Acute kidney injury; improved renal parameters. Discharge Diet: No Restrictions Discharge Activity: Return to Normal Activity Home Medications: Medications to take at Discharge Allopurinol [Zyloprim] 300 mg PO DAILY 04/20/15 Amlodipine [Norvasc] 2.5 mg PO DAILY 04/20/15 Aspirin [Aspirin, Baby] 81 mg PO DAILY@0800 04/20/15 Diltiazem HCl [Diltiazem ER] 120 mg PO DAILY 10/08/17 Multivitamin,Therapeutic [Thera] 1 each PO DAILY 10/08/17 Amoxicillin/Potassium Clav [Augmentin 875-125 Tablet] 1 ea PO BID #20 tab Following Prescrptions Were Given to Patient: Amoxicillin/Potassium Clav [Augmentin 875-125 Tablet] 1 ea PO BID #20 tab Primary Care Physician: Care Physician,No Primary [Primary Care Provider] - Within 2 Weeks Medical Necessity - Tobacco Use Smoking Status: Former smoker Meaningful Use Info Meaningful Use Diagnoses (Choose all that apply): None applicable Code Visit Inpatient E&M: 94582 Disch Hosp
[2017-10-11 12:30] VITALS: BP 138/101; PULSE 73; RESP 18; TEMP 36.7
== END 2017-10-11 12:31 | disposition home or self-care (01) | DRG 392 ==
LOC: ED 04:44 → MS3 06:44
PROVIDERS: Admitting Provider Family Medicine; Emergency Provider Emergency Medicine; Visit Provider Internal Medicine
DX: K57.20 Diverticulitis of large intestine with perforation and abscess without bleeding (principal); N17.9 Acute kidney failure, unspecified; I10 Essential (primary) hypertension; M10.9 Gout, unspecified; Z87.891 Personal history of nicotine dependence; Z87.74 Personal history of (corrected) congenital malformations of heart and circulatory system
CPT/HCPCS: 36415; 74177; 80048; 80053; 81001; 85025; 93306; 97802; 99282; J7030; Q9967; A4216; J2405

== ENCOUNTER 2017-10-20 01:39 | Inpatient (IN) | payer OTHER, SELFPAY ==
[2017-10-20] VITALS (7 sets, daily range): BP systolic 105–166; BP diastolic 47–91; PULSE 63–81; RESP 14–18; TEMP 36.8–37.2; O2SAT 95–98; BMI 29.7; BMI 30.4; BMI 30.5
--- NOTE | 2017-10-20 01:50 | CT_ITS ---
STUDY: CT ABDOMEN AND PELVIS WITH CONTRAST REASON FOR EXAM: Male, 56 years old. Bowel, abscess, perforation RADIATION DOSAGE (If Supplied By Facility): CTDIvol = ( 17.52 ) mGy, DLP = ( 1000.47 ) mGycm TECHNIQUE: Transaxial 3.75 mm images were obtained from the dome of the diaphragm to the symphysis pubis without oral contrast. 100 ml of Isovue 300 contrast was administered. Sagittal and coronal images were reconstructed. Individualized dose optimization techniques were used for this CT. COMPARISON: CT abdomen and pelvis 10/11/2017. 10/08/2017. FINDINGS: The visualized lung bases are unremarkable. The visualized portions of the heart are within normal limits. There is decreased attenuation of the liver consistent with steatosis. Normal gallbladder and extrahepatic biliary system. Normal spleen. Normal pancreas. Normal bilateral adrenal glands. Multiple bilateral punctate nonobstructing renal calculi and low-attenuation cortical changes most consistent with cysts. Mild bilateral renal cortical thinning likely secondary to scarring with lobular contour. There is no obstructive uropathy, obstructive renal or ureteral calculi. Normal visualized stomach. Normal small intestine. There is again acute sigmoid diverticulitis with substantial wall thickening, pericolonic fat inflammation and stranding and fluid. The previously seen area of the medial superior sigmoid wall with pockets of air is more confluent with mild peripheral enhancement currently measuring 1.4 x 3.2 cm image 90 series 2 previously image 95 [address] suggestive of an organizing small wall or periaortic abscess. In addition to previous examination there is increase amount of pocket of air associated with the inferior lateral sigmoid wall currently image 98 series 2 measuring greater than 2.6 x 2.6 x 2.5 cm ( AP x width x height ). Image 98 series 2, image 89 series 602 only seen as small pockets of air along the lateral sigmoid wall previous exam. The appendix is visualized and appears normal. There is no free pneumoperitoneum. Normal abdominal aorta. Normal inferior vena cava. Normal retroperitoneum. Normal urinary bladder. Normal visualized prostate gland. Normal abdominal wall. age appropriate osseous structures. CT/Abdomen/Pelvis WITH Contrast IMPRESSION: Worsening of the acute sigmoid diverticulitis with large pockets of air along the medial and lateral sigmoid wall possibly representing formation of intramural or pericolonic abscess along the medial sigmoid wall, walled off microperforation and/or early abscess formation involving the lateral sigmoid wall. There is no appendicitis, other intraperitoneal abscess, collection, free intraperitoneal perforation or obstruction. Electronically Signed: Rosaura Dumont MD at 4:14 EDT , Service support ,
[2017-10-20 02:07] LABS: Absolute Lymphocyte Count 0.53 X10^3/ul (0.83-4.51); Absolute Neutrophil Count 10.2 X10^3/uL (2.0-7.7); Basophil# 0.01 X10^3/uL; Basophil% 0.1 % (0-1); Eosinophil# 0.09 X10^3/uL; Eosinophils% 0.8 % (0-5); Hematocrit 42.8 % (40-54); Hemoglobin 14.6 g/dl (13.0-16.5); Lymphocyte # 0.53 X10^3/ul (4.0); Lymphocyte % 4.7 % (19-41); Mean Corp Hgb Conc 34.1 g/gl (32-36); Mean Corpuscular Hgb 31.2 pg (27.0-32.0); Mean Corpuscular Volume 91.5 fL (80-94); Mean Platelet Vol. 9.1 fl (6.2-12.0); Monocyte% 4.4 % (0-10); Neutrophil # 10.18 X10^3/uL (2.7-7.7); Neutrophil % 89.9 % (47-70); Platelet Count 249 K/mm3 (150-450); RBC Distribution Width CV 14.2 % (11.6-14.6); RBC Distribution Width SD 46.4 fl (35.1-43.9); Red Blood Count 4.68 M/mm3 (4.6-6.2); White Blood Count 11.3 K/mm3 (4.4-11.0)
[2017-10-20] MEDS: Ondansetron 4 MG/2 ML Vial IV (02:08)
[2017-10-20] MEDS: 0.9% Normal Saline 1,000 ML 125 ML IV (02:08)
[2017-10-20] MEDS: HYDROmorphone 1 MG/ML Syringe IV ×4 (02:08→18:22)
[2017-10-20 02:13] LABS: Bacteria 0 SEEN /hpf (None Seen); Mucous, Urine 0 SEEN /hpf (<or=2+); Red Blood Cells-Urine 0 SEEN /hpf (0-5); Squamous Epithelial Cells - UA 0 SEEN /hpf (0-5); White Blood Cells 0 SEEN /hpf (0-5)
[2017-10-20 02:33] LABS: Color, Urine Yellow (Yellow); Glucose, Dipstick Normal (Normal); Ketone-Dipstick Negative (Negative); Leukocyte Esterase-Dipstick Negative /ul (Negative); Nitrite-Dipstick Negative (Negative); Occult Blood-Urine Negative /ul (Negative); Protein-Dipstick Negative (Negative); Urine Bilirubin Dipstick Negative (Negative); Urine Clarity Clear (Clear); Urine Urobilinogen Normal (Normal)
[2017-10-20 02:34] LABS: Differential Indicated SCAN CRITERIA MET; POSITIVE COUNT NO; POSITIVE DIFFERENTIAL YES; POSITIVE MORPHOLOGY NO
[2017-10-20 02:41] LABS: Differential Comment SCANNED
[2017-10-20 02:46] LABS: Anion Gap 6 (5-15); BUN 18 mg/dL (7-18); Chloride 108 mmol/L (98-107); Creatinine, Serum 1.29 mg/dL (0.70-1.30); EST Glomerular Filtration Rate 62 mL/min (>60); Est Glom Filt Rate - Afr Amer 74 mL/min (>60); Glucose 168 mg/dL (74-106); Potassium 3.8 mmol/L (3.5-5.1); Sodium Level 140 mmol/L (136-145)
--- NOTE | 2017-10-20 04:33 | ED.DCSUM_ITS ---
- ER Visit Summary Date of Service: 10/20/17 Chief Complaint: [Abdominal pain] History of Present Illness: The patient is a 56 M [presents the emergency department with complaint of abdominal pain that started around 11 PM. Patient states that he has had pain off and on for about a month. Patient was admitted recently to the hospital for diverticulitis with perforation however no surgical intervention was required. Patient states he was doing relatively well until this evening when the pain came on rather suddenly. Patient denies fever. Patient did have 2 episodes of watery stool without blood in it.] Physical Examination: [HEENT-PERRLA, EOMI. Cranial nerves II through XII grossly intact. TMs clear. Mucous membranes moist. No adenopathy. Cardiovascular-regular rate and rhythm without murmur or ectopy Lungs-clear to auscultation, chest wall stable without crepitus or subcu emphysema Abdomen-normoactive bowel sounds, soft. Patient has diffuse tenderness over left lower quadrant with guarding and some mild rebound. No rigidity. Extremities-intact ?4, normal range of motion, normal pulses, atraumatic] Test Results: [CBC with differential obtained showed a white count of 11.3, hemoglobin 14.6, hematocrit 43, platelets 249. History is unremarkable. Urinalysis was normal. Lactate was 2.0 CT scan of the abdomen and pelvis showed worsening sigmoid diverticulitis with large pocket of air along the medial and lateral sigmoid wall possibly representing formation of intramural or pericolonic abscess along the medial sigmoid wall walled off microperforation and or early abscess formation involving the lateral sigmoid wall.] Emergency Department Course and Treatment: [Patient was medicated with Dilaudid and Zofran. Patient was started on Cipro and Flagyl. Case was discussed with Dr. Eron Hinojosa as well as Dr. Cat who will admit patient. Patient will likely require percutaneous drain.] Treatment Plan: [Admit] Disposition: [Admit] Impression: [Abdominal pain Worsening diverticulitis with abscess and microperforation] This note was generated with [employer] dictation software. It may contain incorrect words, spelling, and punctuation that were not noted in review of the chart prior to signing ED Disposition - Plan for ED Patient: Chief Complaint: Abd Pain Referrals: Care Physician,No Primary [Primary Care Provider] -
[2017-10-20] MEDS: Ciprofloxacin 400 MG/200 ML BAG 200 MG IV (04:47)
--- NOTE | 2017-10-20 05:00 | PCM.HP.STD ---
Problem List (1) Diverticulitis large intestine Status: Acute (2) Diverticulitis Status: Acute (3) History of heart surgery Status: Chronic History of Present Illness Date of Admission: 10/20/17 Chief Complaint: Diverticulitis with abscess and microperforation The patient is a 56 year old male w/ h/o CAD and multiple episodes of diverticulitis admitted for worsening of acute sigmoid diverticulitis with microperforation and early abscess. He was recently admitted for diverticulitis. He was treated with zosyn and transition to augmentin outpt. However, yesterday around 11PM, he developed lower abdominal pain. Pain was severe and sharp. Nothing made it better or worse. Pain was not associated with any other symptoms. Pain was much worse than previous admission for diverticulitis. Pain was constant and no radiation of pain. No diarrhea or n/v. No fever or chill. Past Medical History Past Medical History (Chronic Problems): Chronic Problems History of heart surgery (Chronic) Allergies chlorhexidine Allergy (Verified 10/20/17 01:40) Unknown Home Medications: Ambulatory Orders Medication Instructions Recorded Allopurinol [Zyloprim] 300 mg PO DAILY 04/20/15 Amlodipine [Norvasc] 2.5 mg PO DAILY 04/20/15 Aspirin [Aspirin, Baby] 81 mg PO DAILY@0800 04/20/15 Diltiazem HCl [Diltiazem ER] 120 mg PO DAILY 10/08/17 Multivitamin,Therapeutic [Thera] 1 each PO DAILY 10/08/17 Amoxicillin/Potassium Clav 1 ea PO BID #20 tab 10/11/17 [Augmentin 875-125 Tablet] Surgical History: - - cardiac surgery x 2 to repair VSD and other similar hole unclear if it was a PFO or other, previous percutaneous drainage of diverticular abscess Lives: Spouse/ Significant Other Smoking Status: Light Smoker (<10/day) Alcohol: None Drugs: None - *Family History Maternal History Items: No pertinent history Review of Systems Constitutional: Denies: Chills, Fever, Weight Change HEENT: Denies: Head Aches, Sinus Congestion, Sinus Drainage Cardiovascular: Denies: Chest Pain, Palpitations Respiratory: Denies: Cough, Shortness of breath at rest, Sputum production Gastrointestinal: Reports: Abdominal Pain. Denies: Nausea, Vomiting Genitourinary: Denies: Dysuria Musculoskeletal: Denies: Joint Pain, Joint Tenderness Skin: Denies: Rash, Wounds Neurological: Denies: Numbness, Tingling, Focal weakness Psychiatric: Denies: Anxiety, Depression, Homicidal Ideations, Suicidal Ideations Hematologic/ Lymphatic: Denies: Easy Bruising, Easy Bleeding VTE Information - Inpt Only VTE Present on Admission: No VTE Mechan Device Prophylaxis: SCD's VTE Pharm Prophylaxis ordered?: Yes Patient Problems: Active and Suspected Problems Diverticulitis large intestine (Acute) - Physical Exam General: Alert, Oriented x3, Cooperative HEENT: Atraumatic, PERRLA, EOMI, Normocephalic Neck: Supple, No JVD, Negative Carotid Bruits Lungs: Clear to auscultation, Normal air movement Cardiovascular: Regular rate, No murmurs Abdomen: Bowel Sounds Present, Soft, Hypoactive Bowel Sounds, Tender Extremities: No edema, Capillary Refill Less than 3 Seconds Skin: No rashes, No breakdown Musculoskeletal: No Tenderness to Palpation of Joints or Extremities Neurological: Cranial nerves II-XII grossly intact Psych/Mental Status: Normal Affect, Appropriate Vital Signs Temp Pulse Resp BP Pulse Ox 98.2 F 77 16 139/91 H 97 10/20/17 01:41 10/20/17 04:14 10/20/17 04:14 10/20/17 04:14 10/20/17 04:14 Oxygen Delivery Method Room Air Weight: 86.183 kg Body Mass Index (BMI) 29.7 Laboratory Tests Past 24 Hrs 10/20/17 10/20/17 10/20/17 01:58 01:58 01:58 WBC 11.3 H RBC 4.68 Hgb 14.6 Hct 42.8 MCV 91.5 MCH 31.2 MCHC 34.1 RDW 14.2 RDW Differential 46.4 H Plt Count 249 MPV 9.1 Immature Gran % (Auto) 0.100 Neut % (Auto) 89.9 H Lymph % (Auto) 4.7 L [place] % (Auto) 4.4 Eos % (Auto) 0.8 Baso % (Auto) 0.1 Absolute Neuts (auto) 10.2 H Absolute Lymphs (auto) 0.53 L Total Counted Not Reportable Differential Comment SCANNED Sodium 140 Potassium 3.8 Chloride 108 H Carbon Dioxide 26.0 Anion Gap 6 BUN 18 Creatinine 1.29 Estim Creat Clear Calc 61.20 Est GFR (MDRD) Af Amer 74 Est GFR (MDRD) Non-Af 62 BUN/Creatinine Ratio 14.0 Glucose 168 H Lactic Acid 2.0 Calcium 9.0 Urine Color Urine Clarity Urine pH Ur Specific [place] Urine Protein Urine Glucose (UA) Urine Ketones Urine Occult Blood Urine Nitrite Urine Bilirubin Urine Urobilinogen Ur Leukocyte Esterase Urine RBC Urine WBC Ur Squamous Epith Cells Urine Bacteria Urine Mucus 10/20/17 02:04 WBC RBC Hgb Hct MCV MCH MCHC RDW RDW Differential Plt Count MPV Immature Gran % (Auto) Neut % (Auto) Lymph % (Auto) [place] % (Auto) Eos % (Auto) Baso % (Auto) Absolute Neuts (auto) Absolute Lymphs (auto) Total Counted Differential Comment Sodium Potassium Chloride Carbon Dioxide Anion Gap BUN Creatinine Estim Creat Clear Calc Est GFR (MDRD) Af Amer Est GFR (MDRD) Non-Af BUN/Creatinine Ratio Glucose Lactic Acid Calcium Urine Color Yellow Urine Clarity Clear Urine pH 5.0 Ur Specific [place] 1.020 Urine Protein Negative Urine Glucose (UA) Normal Urine Ketones Negative Urine Occult Blood Negative Urine Nitrite Negative Urine Bilirubin Negative Urine Urobilinogen Normal Ur Leukocyte Esterase Negative Urine RBC 0 SEEN Urine WBC 0 SEEN Ur Squamous Epith Cells 0 SEEN Urine Bacteria 0 SEEN Urine Mucus 0 SEEN Assessment/Plan All Active Problems Diverticulitis (Acute) Diverticulitis large intestine (Acute) 56 year old male w/ h/o CAD and multiple episodes of diverticulitis admitted for worsening of acute sigmoid diverticulitis with microperforation and early abscess. 1) Acute sigmoid diverticulitis with microperforation and early abscess: CT disclosed worsening noted. Will start cefepime and flagyl given failed previous treatment. Consulted surgery. Probably will need drainage if no improvement. 2) HTN: Resume home meds. Monitor. 3) CAD: Resume home meds. Monitor. 4) Prophylaxis: SCD / heparin.
[2017-10-20 05:04] LABS: Reflex Lactate? Y
[2017-10-20 06:31] LABS: Lactic Acid 1.4 mmol/L (0.4-2.0)
[2017-10-20 06:41] LABS: Lipase 230 U/L (73-393)
[2017-10-20] MEDS: Multivitamins,Therapeutic Tablet 1 TABLET PO (07:56)
[2017-10-20] MEDS: Aspirin 81 MG TAB.CHEW PO (07:56)
--- NOTE | 2017-10-20 08:26 | PCM.PN.BLA ---
Progress Note Day #1 Cefepime and Flagyl. 56-year-old male with a PMH of HTN, tobacco dependence and repair of a VSD? who was recently admitted to [facility] from 10/08/2017 to 10/11/2017 for treatment of diverticulitis. Prior to that he was in a hospital in [place]. He has had a previous drainage of a diverticular abscess. He was sent home from the last admission to [facility] with a 10 day course of Augmentin. He Presented to the emergency department at [facility] on 10/20/2017 complaining of sudden onset severe abdominal pain. Vital signs at admission were temp 98.2, pulse rate 80, blood pressure 166/89, respiratory rate 14 and he was 98% saturated on room air. White blood cell count is elevated at 11.3 with a left shift. Hemoglobin and platelets are within normal limits. BMP was unremarkable. Lactic acid was 2.0 at admission. Random blood sugar was 168. UA was negative. CT scan of the abdomen showed decreased attenuation consistent with steatosis, multiple bilateral punctate nonobstructing renal calculi and low attenuation changes in the cortex consistent with cysts. There was substantial wall thickening of the sigmoid colon with diverticuli. There were large pockets of air along the medial and lateral sigmoid wall probably representing abscess formation. General surgery has been consulted and he was started on Cefepime and Flagyl. Discussed with Dr. Boyd and he believes he will have to take to surgery to drain and have sigmoid colectomy....appears to be a phlegmon in the LLQ. He has made the patient NPO. He denies cough, SOB, CP, N/V. He did have 2 loose BM's last night and is having pain in the LLQ and the suprapubic area. He smokes 2 cigars a day. Echocardiogram in September 2017 shows an ejection fraction of 55% with mild concentric left ventricular hypertrophy. There is +1 TR and a mildly dilated aortic root. PHYSICAL EXAM: GENERAL: alert, oriented X 3, Cooperative, NAD ORAL: dry mucosa, no mucosal lesions, poor dental hygiene and multiple missing teeth NECK: No JVD, supple, trachea midline, no carotid bruits, brisk carotid upstroke with excellent pulse volume LUNGS: CTA, symmetric chest expansion HEART: RRR, Normal S1 and S2, no rub, no gallop, 1/6 systolic ejection murmur at the second right intercostal space ABDOMEN: soft, very tender to palpation in the LLQ and somewhat in the suprapubic area, ND, BS present,guarding with palpation of the LLQ EXTREMITIES: no edema, no cyanosis, no calf tenderness, good peripheral pulses SKIN: No rashes, no breakdown NEUROLOGIC: no focal neurologic deficits PSYCH: appropriate, normal affect, pleasant Impressions 1. recurrent episodes of diverticulitis and now with a phlegmon in the LLQ - will likely go to surgery for sigmoid colectomy tomorrow 2. HTN 3. Hx of a repair of either a VSD or PDA or ASD - pt is not sure 4. LVH with mildly dilated aortic root 5. nicotine dependence 6. Poor dental care IS Albuterol Aerosols PRN NPO DC the telemetry -NSR with no ectopy Lovenox 40 mg SC now and then hold until after surgery Pepcid IV for GI prophylaxis Recheck the lab in the AM Discussed with Dr. Boyd Increase the IV rate and give 1 liter of LR now for dry MM Check a HGBA1C Advised the pt to follow up with a dentist [facility] following discharge Advised smoking cessation
--- NOTE | 2017-10-20 08:32 | PN_ITS ---
Progress Note Day #1 Cefepime and Flagyl. 56-year-old male with a PMH of HTN, tobacco dependence and repair of a VSD? who was recently admitted to [facility] from 10/08/2017 to 10/11/2017 for treatment of diverticulitis. Prior to that he was in a hospital in [place]. He has had a previous drainage of a diverticular abscess. He was sent home from the last admission to [facility] with a 10 day course of Augmentin. He Presented to the emergency department at [facility] on 2017 complaining of sudden onset severe abdominal pain. Vital signs at admission were temp 98.2, pulse rate 80, blood pressure 166/89, respiratory rate 14 and he was 98% saturated on room air. White blood cell count is elevated at 11.3 with a left shift. Hemoglobin and platelets are within normal limits. BMP was unremarkable. Lactic acid was 2.0 at admission. Random blood sugar was 168. UA was negative. CT scan of the abdomen showed decreased attenuation consistent with steatosis, multiple bilateral punctate nonobstructing renal calculi and low attenuation changes in the cortex consistent with cysts. There was substantial wall thickening of the sigmoid colon with diverticuli. There were large pockets of air along the medial and lateral sigmoid wall probably representing abscess formation. General surgery has been consulted and he was started on Cefepime and Flagyl. Discussed with Dr. Boyd and he believes he will have to take to surgery to drain and have sigmoid colectomy....appears to be a phlegmon in the LLQ. He has made the patient NPO. He denies cough, SOB, CP, N/V. He did have 2 loose BM's last night and is having pain in the LLQ and the suprapubic area. He smokes 2 cigars a day. Echocardiogram in September 2017 shows an ejection fraction of 55% with mild concentric left ventricular hypertrophy. There is +1 TR and a mildly dilated aortic root. PHYSICAL EXAM: GENERAL: alert, oriented X 3, Cooperative, NAD ORAL: dry mucosa, no mucosal lesions, poor dental hygiene and multiple missing teeth NECK: No JVD, supple, trachea midline, no carotid bruits, brisk carotid upstroke with excellent pulse volume LUNGS: CTA, symmetric chest expansion HEART: RRR, Normal S1 and S2, no rub, no gallop, 1/6 systolic ejection murmur at the second right intercostal space ABDOMEN: soft, very tender to palpation in the LLQ and somewhat in the suprapubic area, ND, BS present,guarding with palpation of the LLQ EXTREMITIES: no edema, no cyanosis, no calf tenderness, good peripheral pulses SKIN: No rashes, no breakdown NEUROLOGIC: no focal neurologic deficits PSYCH: appropriate, normal affect, pleasant Impressions 1. recurrent episodes of diverticulitis and now with a phlegmon in the LLQ - will likely go to surgery for sigmoid colectomy tomorrow 2. HTN 3. Hx of a repair of either a VSD or PDA or ASD - pt is not sure 4. LVH with mildly dilated aortic root 5. nicotine dependence 6. Poor dental care IS Albuterol Aerosols PRN NPO DC the telemetry -NSR with no ectopy Lovenox 40 mg SC now and then hold until after surgery Pepcid IV for GI prophylaxis Recheck the lab in the AM Discussed with Dr. Boyd Increase the IV rate and give 1 liter of LR now for dry MM Check a HGBA1C Advised the pt to follow up with a dentist [facility] following discharge Advised smoking cessation
[2017-10-20] MEDS: dilTIAZem CD 120 MG Capsule PO (10:00)
[2017-10-20] MEDS: amLODIPine 2.5 MG Tablet PO (10:00)
[2017-10-20] MEDS: Allopurinol 300 MG Tablet PO (10:00)
[2017-10-20] MEDS: Lactated Ringers 1,000 ML 999 ML IV (10:08)
[2017-10-20 10:35] LABS: Prothrombin Time (Protime)PT. 13.3 SECONDS (11.7-14.9)
[2017-10-20 10:36] LABS: Partial Thromboplast Time 28.1 Seconds (24.1-36.2)
--- NOTE | 2017-10-20 10:45 | PCM.CONS.GEN ---
Reason for Consult Date of Consultation: 10/20/17 History of Present Illness: The patient is a 56 year old M with recurring diverticulitis. The patient is a 56 year old M with a complaint of recurring left lower quadrant pain. The patient has had by his own account 3 significant episodes of diverticulitis. most recently, he developed left lower quadrant pain and was admitted to [facility] with a diagnosis of diverticulitis. He understands there was a pericolonic abscess which required percutaneous drainage. He recalls he was in the hospital for 14 days. At discharge, he was recommended that he follow up for colonoscopy as an outpatient and then for consideration of sigmoid resection. He failed follow-up with that visit. He has not hit appears that he underwent CT scan with percutaneous drainage in March. Approximate on April 06, 2017 at [facility].ad a previous colonoscopy. He now presents with a recurring episode of left lower quadrant pain consistent with his previous diverticulitis attacks. He notes no nausea or vomiting. He noted some low-grade fever. CT scan demonstrated sigmoid diverticulitis with what appeared to be extracolonic air and fluid, but not getting organized abscess. He was also negative. A scant amount of free air up around the liver. I was contacted for evaluation, given this history of complicated diverticulitis. the patient has a history of an atrial septal defect and pulmonary artery stenosis. The patient initially had pulmonary artery banding and a ventricular septal defect repair as a child. In 2013. The patient returned with moderately symptomatic shortness of breath, and a larger atrial septal defect along with a stenotic pulmonary artery at the bifurcation. The primary stenosis was noted to be in the right pulmonary artery and the left distal pulmonary artery was dilated. patient underwent reoperation second open heart surgery with atrial septal defect closure and pulmonary artery repair. it appears this repair was performed with running suture and no true graft material was placed. he had an echocardiogram at his last visit, which actually demonstrated no signs of pulmonary hypertension or valvular cardiac abnormalities. 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 he also has a history of kidney stones, hyperlipidemia, hypertension and gout. he was admitted from October 08 - October 11. He was treated with IV antibiotics and had improvement in his symptoms discharged home on oral antibiotics. he returns now with worsening abdominal pain in the left lower quadrant. CT scan of the abdomen and pelvis was again obtained. This demonstrated increasing phlegmon with some extra colonic gas that is more localized. It is difficult to ascertain whether this is a more organized abscess or not currently drainable as it is just worsening phlegmon. Past Medical History Past Medical History (Chronic Problems): Chronic Problems History of heart surgery (Chronic) Allergies chlorhexidine Allergy (Verified 10/20/17 01:40) Unknown Home Medications: Ambulatory Orders Medication Instructions Recorded Allopurinol [Zyloprim] 300 mg PO DAILY 04/20/15 Amlodipine [Norvasc] 2.5 mg PO DAILY 04/20/15 Aspirin [Aspirin, Baby] 81 mg PO DAILY@0800 04/20/15 Diltiazem HCl [Diltiazem ER] 120 mg PO DAILY 10/08/17 Multivitamin,Therapeutic [Thera] 1 each PO DAILY 10/08/17 Amoxicillin/Potassium Clav 1 ea PO BID #20 tab 10/11/17 [Augmentin 875125 Tablet] Surgical History: - - cardiac surgery x 2 to repair VSD and other similar hole unclear if it was a PFO or other, previous percutaneous drainage of diverticular abscess Lives: Spouse/ Significant Other Smoking Status: Light Smoker (<10/day) Tobacco Use: Cigars Alcohol: None Drugs: None - *Family History Maternal History Items: No pertinent history Review of Systems Constitutional: Denies: Chills, Fever, Weight Change HEENT: Denies: Head Aches, Sinus Congestion, Sinus Drainage Cardiovascular: Denies: Chest Pain, Palpitations Respiratory: Denies: Cough, Shortness of breath at rest, Sputum production Gastrointestinal: Reports: Abdominal Pain. Denies: Nausea, Vomiting Genitourinary: Denies: Dysuria Musculoskeletal: Denies: Joint Pain, Joint Tenderness Skin: Denies: Rash, Wounds Neurological: Denies: Numbness, Tingling, Focal weakness Psychiatric: Denies: Anxiety, Depression, Homicidal Ideations, Suicidal Ideations Hematologic/ Lymphatic: Denies: Easy Bruising, Easy Bleeding Patient Problems: Active and Suspected Problems Diverticulitis large intestine (Acute) - Physical Exam General: Alert, Oriented x3, Cooperative HEENT: Atraumatic, PERRLA, EOMI, Normocephalic Neck: Supple, No JVD, Negative Carotid Bruits Lungs: Clear to auscultation, Normal air movement Cardiovascular: Regular rate, No murmurs Abdomen: Bowel Sounds Present, Soft, Tender - LLQ without diffuse peritoneal signs Extremities: No edema, Capillary Refill Less than 3 Seconds Skin: No rashes, No breakdown Musculoskeletal: No Tenderness to Palpation of Joints or Extremities Neurological: Cranial nerves II-XII grossly intact Psych/Mental Status: Normal Affect, Appropriate Vital Signs Temp Pulse Resp BP Pulse Ox 98.2 F 67 18 119/82 H 97 10/20/17 08:52 10/20/17 08:52 10/20/17 08:52 10/20/17 08:52 10/20/17 08:52 Oxygen Delivery Method Room Air Weight: 88.2 kg Body Mass Index (BMI) 30.4 Laboratory Tests Past 24 Hrs 10/20/17 10/20/17 10/20/17 05:45 10:15 10:15 PT INR APTT Hemoglobin A1c Pending Lactic Acid 1.4 Phosphorus Pending Magnesium Pending Total Bilirubin Pending Direct Bilirubin Pending AST Pending ALT Pending Alkaline Phosphatase Pending Total Protein Pending Albumin Pending 10/20/17 10:15 PT 13.3 INR 1.0 APTT 28.1 Hemoglobin A1c Lactic Acid Phosphorus Magnesium Total Bilirubin Direct Bilirubin AST ALT Alkaline Phosphatase Total Protein Albumin Assessment/Plan All Active Problems Diverticulitis (Acute) Diverticulitis large intestine (Acute) recurrent diverticulitis with pericolonic abscess/phlegmon-no signs of obstructive pattern. The patient admitted and started on IV antibiotics and bowel rest. We will follow him clinically. This does not appear to be quite ready for drainage currently but we will schedule for potential percutaneous drainage and have the radiologist viewing the morning. I discussed with the patient the fact that it with multiple courses of relatively, diverticulitis, we should really consider resection after this event. Hopefully, he will follow conservative management with IV antibiotics, bowel rest, plus or minus possible percutaneous drainage at which point we'll not have to proceed with urgent resection. we discussed that if his symptoms worsen, this is on drainable via CT scan to try to convert from a more complicated to a simpler diverticulitis that he will likely require urgent exploration, this would be an open procedure and might result in a resection with temporary ostomy.
[2017-10-20 10:55] LABS: AST(SGOT) 18 U/L (15-37); Alanine Aminotransfer ALT/SGPT 41 U/L (16-61); Albumin, Serum 3.6 g/dL (3.2-5.0); Alkaline Phosphatase 105 U/L (45-117); Bilirubin, Direct 0.13 mg/dL (0.00-0.30); Globulin 3.2 g/dL (2.2-4.2); Magnesium 1.9 mg/dL (1.6-2.6); Phosphorus 3.6 mg/dL (2.5-4.9); Protein, Total 6.8 g/dL (6.4-8.2)
[2017-10-20] MEDS: Enoxaparin 40 MG/0.4 ML Syringe SC (10:57)
[2017-10-20 11:02] LABS: Hemoglobin A1c 5.9 % (4.2-6.3)
[2017-10-20] MEDS: 0.9% Normal Saline 1,000 ML 150 ML IV ×2 (11:18→22:05)
[2017-10-21] VITALS (11 sets, daily range): BP systolic 116–154; BP diastolic 64–94; PULSE 68–79; RESP 12–18; TEMP 36.8–37.4; O2SAT 89–98
[2017-10-21 06:25] LABS: Anion Gap 9 (5-15); BUN 14 mg/dL (7-18); BUN/Creat Ratio 10.9 RATIO (10-20); Calcium,Total 8.1 mg/dL (8.5-10.1); Chloride 108 mmol/L (98-107); Creatinine, Serum 1.28 mg/dL (0.70-1.30); EST Glomerular Filtration Rate 62 mL/min (>60); Est Glom Filt Rate - Afr Amer 75 mL/min (>60); Estimated Creatinine Clearance 61.68 ml/min; Glucose 115 mg/dL (74-106); Potassium 3.8 mmol/L (3.5-5.1); Sodium Level 143 mmol/L (136-145)
--- NOTE | 2017-10-21 06:37 | PCM.PN.SRG ---
Patient Problems: Active and Suspected Problems Diverticulitis large intestine (Acute) Subjective: still LLQ pain, decreased flatus - Physical Exam General: Alert, Oriented x3, Cooperative Lungs: Clear to auscultation, Normal air movement Cardiovascular: Regular rate, No murmurs Abdomen: Bowel Sounds Present, Soft, Tender - LLQ Vital Signs Temp Pulse Resp BP Pulse Ox 99.4 F H 77 16 129/75 H 95 10/21/17 05:20 10/21/17 05:20 10/21/17 05:20 10/21/17 05:20 10/21/17 05:20 Oxygen Delivery Method Room Air Weight: 88.2 kg Body Mass Index (BMI) 30.4 Intake and Output for Last 24 Hours 10/19/17 10/20/17 10/21/17 23:59 23:59 23:59 Intake Total 2075 / 2075 2685 / 2685 Output Total 1290 / 1290 Balance 785 / 785 2685 / 2685 Laboratory Tests Past 24 Hrs 10/20/17 10/20/17 10/20/17 10:15 10:15 10:15 WBC RBC Hgb Hct MCV MCH MCHC RDW RDW Differential Plt Count Neut % (Auto) Absolute Neuts (auto) Total Counted PT 13.3 INR 1.0 APTT 28.1 Sodium Potassium Chloride Carbon Dioxide Anion Gap BUN Creatinine Estim Creat Clear Calc Est GFR (MDRD) Af Amer Est GFR (MDRD) Non-Af BUN/Creatinine Ratio Glucose Hemoglobin A1c 5.9 Calcium Phosphorus 3.6 Magnesium 1.9 Total Bilirubin 0.40 Direct Bilirubin 0.13 AST 18 ALT 41 Alkaline Phosphatase 105 Total Protein 6.8 Albumin 3.6 Globulin 3.2 10/21/17 10/21/17 05:26 05:26 WBC Pending RBC Pending Hgb Pending Hct Pending MCV Pending MCH Pending MCHC Pending RDW Pending RDW Differential Pending Plt Count Pending Neut % (Auto) Pending Absolute Neuts (auto) Pending Total Counted Pending PT INR APTT Sodium 143 Potassium 3.8 Chloride 108 H Carbon Dioxide 26.0 Anion Gap 9 BUN 14 Creatinine 1.28 Estim Creat Clear Calc 61.68 Est GFR (MDRD) Af Amer 75 Est GFR (MDRD) Non-Af 62 BUN/Creatinine Ratio 10.9 Glucose 115 H Hemoglobin A1c Calcium 8.1 L Phosphorus Magnesium Total Bilirubin Direct Bilirubin AST ALT Alkaline Phosphatase Total Protein Albumin Globulin Medical Necessity - Tobacco Use Smoking Status: Light Smoker (<10/day) Tobacco Use: Cigars Assessment/Plan All Active Problems Diverticulitis (Acute) Diverticulitis large intestine (Acute) recurrent diverticulitis with pericolonic abscess/phlegmon-no signs of obstructive pattern. The patient admitted and started on IV antibiotics and bowel rest. We will follow him clinically. This does not appear to be quite ready for drainage currently but we will schedule for potential percutaneous drainage and have the radiologist viewing the morning. I discussed with the patient the fact that it with multiple courses of relatively, diverticulitis, we should really consider resection after this event. Hopefully, he will follow conservative management with IV antibiotics, bowel rest, plus or minus possible percutaneous drainage at which point we'll not have to proceed with urgent resection. We will discuss with radiology this morning to determine if this is on drainable via CT scan to try to convert from a more complicated to a simpler diverticulitis. Otherwise, he will likely require urgent exploration, this would be an open procedure and might result in a resection with temporary ostomy.
[2017-10-21 06:38] LABS: Absolute Lymphocyte Count 0.58 X10^3/ul (0.83-4.51); Basophil# 0.01 X10^3/uL; Basophil% 0.1 % (0-1); Eosinophil# 0.09 X10^3/uL; Eosinophils% 1.3 % (0-5); Hematocrit 38.6 % (40-54); Hemoglobin 12.9 g/dl (13.0-16.5); Lymphocyte # 0.58 X10^3/ul (4.0); Lymphocyte % 8.1 % (19-41); Mean Corp Hgb Conc 33.4 g/gl (32-36); Mean Corpuscular Hgb 31.1 pg (27.0-32.0); Mean Platelet Vol. 9.5 fl (6.2-12.0); Monocyte# 0.47 X10^3/uL; Monocyte% 6.6 % (0-10); Neutrophil # 5.98 X10^3/uL (2.7-7.7); Neutrophil % 83.8 % (47-70); Platelet Count 202 K/mm3 (150-450); RBC Distribution Width CV 14.1 % (11.6-14.6); RBC Distribution Width SD 46.5 fl (35.1-43.9); Red Blood Count 4.15 M/mm3 (4.6-6.2); White Blood Count 7.1 K/mm3 (4.4-11.0)
[2017-10-21 06:43] LABS: Differential Indicated SCAN CRITERIA MET; POSITIVE COUNT NO; POSITIVE DIFFERENTIAL YES; POSITIVE MORPHOLOGY NO
[2017-10-21 07:06] LABS: Differential Comment SCANNED
--- NOTE | 2017-10-21 09:32 | PCM.PN.HOSP ---
Patient Problems: Active and Suspected Problems Diverticulitis large intestine (Acute) Subjective: Patient was seen and examined. Had CT guided drainage of abscess. Pain is controlled at the time of exam. He denied fever or chills or SOB. Vitals/I&O's: Vital Signs Temp Pulse Resp BP Pulse Ox 98.2 F 78 18 148/88 H 98 10/21/17 08:45 10/21/17 08:45 10/21/17 08:45 10/21/17 08:45 10/21/17 08:45 Oxygen Delivery Method Room Air Weight: 88.2 kg Body Mass Index (BMI) 30.4 Intake and Output for Last 24 Hours 10/19/17 10/20/17 10/21/17 23:59 23:59 23:59 Intake Total 2075 / 2075 2685 / 2685 Output Total 1290 / 1290 Balance 785 / 785 2685 / 2685 General: Alert, Oriented x3, Cooperative, No apparent distress HEENT: Atraumatic, PERRLA, EOMI, Normocephalic Oral: Moist Mucosa Neck: Supple Lungs: Clear to auscultation, Normal air movement Cardiovascular: Regular rate, Regular Rhythm, Normal S1, Normal S2, No murmurs Abdomen: Bowel Sounds Present, Soft, Non-Distended, No Hepato-splenomegaly, Tender - over LLQ., - - Midline incisional dressing Extremities: No edema Skin: No rashes, No breakdown Musculoskeletal: No Tenderness to Palpation of Joints or Extremities Lymphatic: No Cervical, Supraclavicular, or Inguinal Adenopathy Neurological: Cranial nerves II-XII grossly intact, Neuro grossly intact Psych/Mental Status: Normal Affect, Appropriate Laboratory Results 10/20/17 10:15: Phosphorus 3.6, Magnesium 1.9, Total Bilirubin 0.40, Direct Bilirubin 0.13, AST 18, ALT 41, Alkaline Phosphatase 105, Total Protein 6.8, Albumin 3.6, Globulin 3.2 10/20/17 10:15: Hemoglobin A1c 5.9 10/20/17 10:15: PT 13.3, INR 1.0, APTT 28.1 10/21/17 05:26: Sodium 143, Potassium 3.8, Chloride 108 H, Carbon Dioxide 26.0, Anion Gap 9, BUN 14, Creatinine 1.28, Estim Creat Clear Calc 61.68, Est GFR (MDRD) Af Amer 75, Est GFR (MDRD) Non-Af 62, BUN/Creatinine Ratio 10.9, Glucose 115 H, Calcium 8.1 L 10/21/17 05:26: WBC 7.1, RBC 4.15 L, Hgb 12.9 L, Hct 38.6 L, MCV 93.0, MCH 31.1, MCHC 33.4, RDW 14.1, RDW Differential 46.5 H, Plt Count 202, MPV 9.5, Immature Gran % (Auto) 0.100, Neut % (Auto) 83.8 H, Lymph % (Auto) 8.1 L, [place] % (Auto) 6.6, Eos % (Auto) 1.3, Baso % (Auto) 0.1, Absolute Neuts (auto) 6.0, Absolute Lymphs (auto) 0.58 L, Total Counted Not Reportable, Differential Comment SCANNED 10/21/17 05:26: Magnesium Pending Current Medications Albuterol Sulfate (Ventolin Aerosols) 2.5 mg INHALATION Q2H PRN PRN PRN Reason: WHEEZING Allopurinol (Zyloprim) 300 mg PO DAILY [facility] Last Admin: 10/20/17 10:00 Dose: 300 mg Amlodipine Besylate (Norvasc) 2.5 mg PO DAILY [facility] Last Admin: 10/20/17 10:00 Dose: 2.5 mg Aspirin (Aspirin, Baby) 81 mg PO DAILY@0800 [facility] Last Admin: 10/21/17 08:48 Dose: Not Given Diltiazem HCl (Cardizem Cd) 120 mg PO DAILY [facility] Last Admin: 10/20/17 10:00 Dose: 120 mg Hydromorphone HCl (Dilaudid Inj) 0.5 - 1 mg IV Q2H PRN PRN PRN Reason: SEVERE PAIN (6-10/10) Hydromorphone HCl (Dilaudid Inj) 0.5 - 1 mg IV Q2H PRN PRN PRN Reason: SEVERE PAIN (6-10/10) Last Admin: 10/20/17 18:22 Dose: 1 mg Cefepime HCl 1 gm/ Sodium (Chloride) 50 mls @ 100 mls/hr IV Q8 [facility] Last Admin: 10/21/17 05:19 Dose: 100 mls/hr Metronidazole (Flagyl) 500 mg in 100 mls @ 100 mls/hr IV Q8H [facility] Last Admin: 10/21/17 07:10 Dose: 100 mls/hr Sodium Chloride () 1,000 mls @ 150 mls/hr IV .Q6H40M [facility] Last Admin: 10/20/17 22:05 Dose: 150 mls/hr Famotidine 20 mg/ Sodium (Chloride) 10 mls @ 300 mls/hr IV Q12 [facility] Last Admin: 10/20/17 22:07 Dose: 300 mls/hr Magnesium Hydroxide (Milk Of Magnesia) 30 ml PO DAILY PRN PRN PRN Reason: Constipation Multivitamins (Multivitamin) 1 tablet PO DAILY@0800 [facility] Last Admin: 10/21/17 08:48 Dose: Not Given Medical Necessity - Tobacco Use Smoking Status: Light Smoker (<10/day) Tobacco Use: Cigars Assessment/Plan All Active Problems Diverticulitis (Acute) Diverticulitis large intestine (Acute) 56-year-old male with PMHx of hypertension, tobacco dependence and repair of a VSD?, h/o diverticular abscess drainage, recently admitted for acute diverticulitis was in with lower abdominal pain and found to have diverticulitis with abscess and possible microperforation. 1. Acute diverticulitis in a patient with recurrent diverticulitis, now with a pericolic abscess/phlegmon, CT-guided drainage, vitals have been stable, cytosis improved, cefepime and metronidazole, will continue to follow, in a.m. 2. Hypertension, controlled 3. Nicotine dependence 4. DVT PPx- 5. Disposition: Possible discharge in 24-48 hours if patient appears improved Code Visit Inpatient E&M: 45880 Subs Hosp L3
[2017-10-21 09:49] LABS: Magnesium 1.9 mg/dL (1.6-2.6)
--- NOTE | 2017-10-21 09:51 | CT_ITS ---
PROCEDURE: CT DIRECTED ABSCESS DRAINAGE, PERITONEAL DATE OF EXAMINATION: October 21, 2017. INDICATION: Male, 56 years old. Drainage of a left sigmoid diverticular abscess. PHYSICIAN: Andrew Gonzalez M.D. CONSENT: Written informed consent was obtained having explained the risks, benefits and alternatives in detail with the patient who accepted the risks and agreed to proceed. Laboratory review and clinical assessment was performed. CONSCIOUS SEDATION PROTOCOL: The Drugs used were: 3 mg Versed, IV., and 75 mcg Fentanyl, IV. The sedation time was: 25 minutes. The conscious sedation protocol was independently monitored by the department nurse. RADIATION DOSAGE (If Supplied By Facility): CTDIvol = ( 32 ) mGy, DLP = ( 836.86 ) mGycm TECHNIQUE: CT sections were made through the abdomen and pelvis revealing an abscess in the left lower quadrant adjacent to the mesenteric side of the sigmoid colon. The skin surface was prepped and draped in a sterile fashion. Puncture of this collection was performed initially with a 8.5 [place] all-purpose drainage catheter. No fluid was aspirated. This most likely represents a phlegmon. Drainage catheter was then inserted into the collection and formed into position. The catheter was sutured into position to allow for continued drainage. Followup CT sections reveals good position of the catheter. A followup CT examination was ordered within 48 hours.It could be done as indicated however. CT/Abscess/Fistula/Sinus Tract IMPRESSION: 1. CT directed drainage of a fluid collection using CT image guidance and image documentation as described. 2. Conscious Sedation protocol utilized with independent monitoring Electronically Signed: Andrew Gonzalez MD at 12:41 EDT Tel [phone], Service support ,
--- NOTE | 2017-10-21 09:59 | NURSING ---
REPORT TO KAT WILLIAMSON
[2017-10-21] MEDS: Allopurinol 300 MG Tablet PO (10:29)
[2017-10-21] MEDS: dilTIAZem CD 120 MG Capsule PO (10:29)
[2017-10-21] MEDS: amLODIPine 2.5 MG Tablet PO (10:29)
[2017-10-21] MEDS: 0.9% Normal Saline 1,000 ML 150 ML IV ×2 (10:32→20:30)
--- NOTE | 2017-10-21 12:36 | CASEMGMT ---
KAT CM RE-ADMISSION NOTE: 10/08/17- 10/11/17: Pt treated for Diverticulitis w/IV Zosyn and discharged home on po Augmentin and was to establish as new pt with Dr Wills after discharge. Pt reports he does have an appt scheduled w/Dr Wills on November 11. 10/20/17: Pt re-admitted with worsening Diverticulitis w/abcess and microperforation. Being treated with IV Cefepime and bowel rest. May need percutaneous drainage of abcess or possible resection. Discussed with pt Advanced Directives. Pt and given Advanced Directives booklet. States they do not wish to talk with someone about completing paperwork at this time, but will notify staff if they decide they would like to talk with someone in further detail. D/C Plan: Undetermined. Will re-evaluate discharge plan.
[2017-10-21] MEDS: HYDROmorphone 1 MG/ML Syringe IV (15:24)
[2017-10-22] MEDS: HYDROmorphone 0.5 MG/0.5 ML SYRINGE IV
[2017-10-22 04:25] VITALS: BP 121/83; PULSE 63; RESP 16; TEMP 37; O2SAT 99
[2017-10-22 06:03] LABS: Absolute Lymphocyte Count 0.62 X10^3/ul (0.83-4.51); Absolute Neutrophil Count 3.8 X10^3/uL (2.0-7.7); Basophil# 0.01 X10^3/uL; Basophil% 0.2 % (0-1); Eosinophil# 0.11 X10^3/uL; Eosinophils% 2.2 % (0-5); Hematocrit 37.1 % (40-54); Hemoglobin 12.3 g/dl (13.0-16.5); Lymphocyte # 0.62 X10^3/ul (4.0); Lymphocyte % 12.5 % (19-41); Mean Corp Hgb Conc 33.2 g/gl (32-36); Mean Corpuscular Hgb 30.5 pg (27.0-32.0); Mean Corpuscular Volume 92.1 fL (80-94); Mean Platelet Vol. 9.3 fl (6.2-12.0); Monocyte# 0.36 X10^3/uL; Monocyte% 7.3 % (0-10); Neutrophil # 3.84 X10^3/uL (2.7-7.7); Neutrophil % 77.6 % (47-70); Platelet Count 193 K/mm3 (150-450); RBC Distribution Width SD 46.7 fl (35.1-43.9); Red Blood Count 4.03 M/mm3 (4.6-6.2)
[2017-10-22 06:06] LABS: POSITIVE COUNT NO; POSITIVE DIFFERENTIAL NO; POSITIVE MORPHOLOGY NO
[2017-10-22 06:17] LABS: Anion Gap 8 (5-15); BUN 12 mg/dL (7-18); BUN/Creat Ratio 11.1 RATIO (10-20); Calcium,Total 8.1 mg/dL (8.5-10.1); Chloride 108 mmol/L (98-107); Creatinine, Serum 1.08 mg/dL (0.70-1.30); EST Glomerular Filtration Rate 76 mL/min (>60); Est Glom Filt Rate - Afr Amer 91 mL/min (>60); Glucose 85 mg/dL (74-106); Potassium 3.6 mmol/L (3.5-5.1); Sodium Level 143 mmol/L (136-145)
[2017-10-22] MEDS: 0.9% Normal Saline 1,000 ML 150 ML IV (06:18)
[2017-10-22 07:59] VITALS: BP 127/81; PULSE 66; RESP 16; TEMP 36.8; O2SAT 98
[2017-10-22] MEDS: Multivitamins,Therapeutic Tablet 1 TABLET PO (08:01)
[2017-10-22] MEDS: Allopurinol 300 MG Tablet PO (08:02)
[2017-10-22] MEDS: dilTIAZem CD 120 MG Capsule PO (08:02)
[2017-10-22] MEDS: amLODIPine 2.5 MG Tablet PO (08:02)
[2017-10-22] MEDS: Aspirin 81 MG TAB.CHEW PO (08:02)
--- NOTE | 2017-10-22 09:09 | PCM.DC ---
- Discharge Diagnoses Current Active Problems: Current Active and Chronic Problems Diverticulitis large intestine (Acute) Reason(s) for Visit for Discharge Instructions: Abdominal pain You will use the following diet at home:: Regular Your food should be the consistency of: Regular Your liquids should be the consistency of: Regular/Thin Discharge Activity: Return to Normal Activity Weight Bearing Status: Weight bearing as tolerated Additional Instructions: You will need to repeat a CT scan of the abdomen and pelvis tomorrow. Follow-up with Dr. Boyd in 1 week. Complete your antibiotics. Follow the instrctions for care for your DESTINY drain. Allergies/Adverse Reactions: Allergies chlorhexidine Allergy (Verified 10/20/17 01:40) Unknown Medications to take at Discharge Allopurinol [Zyloprim] 300 mg PO DAILY 04/20/15 Amlodipine [Norvasc] 2.5 mg PO DAILY 04/20/15 Aspirin [Aspirin, Baby] 81 mg PO DAILY@0800 04/20/15 Diltiazem HCl [Diltiazem ER] 120 mg PO DAILY 10/08/17 Multivitamin,Therapeutic [Thera] 1 each PO DAILY 10/08/17 Ciprofloxacin [Cipro] 500 mg PO BID #20 tab 10/22/17 Metronidazole [Flagyl] 500 mg PO Q8H #30 tab 10/22/17 Oxycodone [Oxyir] 5 mg PO Q4H PRN PRN 5 Days #20 tab 10/22/17 The following prescriptions were given: Oxycodone [Oxyir] 5 mg PO Q4H PRN PRN 5 Days #20 tab PRN Reason: Severe Pain (6-10/10) Metronidazole [Flagyl] 500 mg PO Q8H #30 tab Ciprofloxacin [Cipro] 500 mg PO BID #20 tab Orders to be completed after discharge: Abdomen/Pelvis WITH Contrast [CT] Time Frame: 1 Day, Location: None Selected Primary Care Physician: Care Physician,No Primary [Primary Care Provider] - Please follow up with your Primary Care Physician in: within 2 weeks Please Follow Up With: Eron Boyd MD When: in 1 week Proposed Discharge Date: 10/22/17
--- NOTE | 2017-10-22 10:58 | PCM.DC.SUM ---
Discharge Date and Diagnosis Date of Admission: 10/20/17 Date of Discharge: 10/22/17 - Primary Discharge Diagnosis Active and Suspected Problems Diverticulitis large intestine (Acute) Diverticular abscess Nicotine use disorder - Secondary Discharge Diagnosis Chronic Problems History of heart surgery (Chronic) Hypertension Recurrent diverticulitis Hospital Course and Treatment Imaging Results: Clinical Impression(s) from Imaging Studies Abdomen/Pelvis CT 10/20/17 01:50 IMPRESSION: Worsening of the acute sigmoid diverticulitis with large pockets of air along the medial and lateral sigmoid wall possibly representing formation of intramural or pericolonic abscess along the medial sigmoid wall, walled off microperforation and/or early abscess formation involving the lateral sigmoid wall. There is no appendicitis, other intraperitoneal abscess, collection, free intraperitoneal perforation or obstruction. Electronically Signed: Rosaura Dumont MD at 4:14 EDT , Service support , Abscess Drainage 10/21/17 09:51 IMPRESSION: 1. CT directed drainage of a fluid collection using CT image guidance and image documentation as described. 2. Conscious Sedation protocol utilized with independent monitoring Electronically Signed: Andrew Gonzalez MD at 12:41 EDT Tel [phone], Service support , General surgery - Dr. Boyd Operations: - - CT-guided drainage of diverticular abscess Summary of Care Provided: 56-year-old male with PMHx of hypertension, tobacco dependence and repair of a VSD?, h/o diverticular abscess drainage, recently admitted for acute diverticulitis admitted with lower abdominal pain and found to have diverticulitis with abscess and possible microperforation. 1. Acute diverticulitis in a patient with recurrent diverticulitis, with a pericolic abscess/phlegmon. He was seen by general surgery, underwent CT-guided drainage on 10/21/17, s/p DESTINY drain with drainage, leucocytosis improved on IV cefepime and metronidazole. He was discharged on oral cipro and flagyl. He will get a repeat CT scan of the abd/pelvis tomorrow and follow-up with Dr. Boyd in less than 1 week to decide on colectomy. 2. Hypertension, controlled, continue home regimen 3. Nicotine dependence/use disorder, advised to quit. Discharge Diet: Low fat/ Low Cholesterol, 2000 mg Sodium Diet Discharge Activity: Return to Normal Activity Weight Bearing Status: Weight bearing as tolerated Home Medications: Medications to take at Discharge Allopurinol [Zyloprim] 300 mg PO DAILY 04/20/15 Amlodipine [Norvasc] 2.5 mg PO DAILY 04/20/15 Aspirin [Aspirin, Baby] 81 mg PO DAILY@0800 04/20/15 Diltiazem HCl [Diltiazem ER] 120 mg PO DAILY 10/08/17 Multivitamin,Therapeutic [Thera] 1 each PO DAILY 10/08/17 Ciprofloxacin [Cipro] 500 mg PO BID #20 tab 10/22/17 Metronidazole [Flagyl] 500 mg PO Q8H #30 tab 10/22/17 Oxycodone [Oxyir] 5 mg PO Q4H PRN PRN 5 Days #20 tab 10/22/17 Following Prescrptions Were Given to Patient: Oxycodone [Oxyir] 5 mg PO Q4H PRN PRN 5 Days #20 tab PRN Reason: Severe Pain (6-10/10) Metronidazole [Flagyl] 500 mg PO Q8H #30 tab Ciprofloxacin [Cipro] 500 mg PO BID #20 tab Other Amb Orders: Abdomen/Pelvis WITH Contrast [CT] Time Frame: 1 Day, Location: None Selected Primary Care Physician: Care Physician,No Primary [Primary Care Provider] - Please follow up with your Primary Care Physician in: within 2 weeks Please Follow Up With: Eron Boyd MD When: in 1 week Disposition: Home Minutes spent on discharge:: 45 Patient Condition:: Stable Medical Necessity - Tobacco Use Smoking Status: Light Smoker (<10/day) Tobacco Use: Cigars Meaningful Use Info Meaningful Use Diagnoses (Choose all that apply): None applicable Code Visit Inpatient E&M: 80600 Disch Hosp
--- NOTE | 2017-10-22 17:57 | PCM.PN.SRG ---
Subjective: tolerating diet, minimal pain - Physical Exam General: Alert, Oriented x3, Cooperative Lungs: Clear to auscultation, Normal air movement Cardiovascular: Regular rate, No murmurs Abdomen: Bowel Sounds Present, Soft, Tender - in the left lower quadrant but improved, drained with somewhat bloody, but otherwise minimal output Vital Signs Temp Pulse Resp BP Pulse Ox 98.2 F 66 16 127/81 H 98 10/22/17 07:59 10/22/17 07:59 10/22/17 07:59 10/22/17 07:59 10/22/17 07:59 Oxygen Flow Rate (L/min) [6] 2 Oxygen Flow Rate (L/min) [5] 2 Oxygen Flow Rate (L/min) [4] 2 Oxygen Flow Rate (L/min) [3] 2 Oxygen Flow Rate (L/min) [2] 2 Oxygen Flow Rate (L/min) 2 Oxygen Delivery Method [6] Nasal Cannula Oxygen Delivery Method [5] Nasal Cannula Oxygen Delivery Method [4] Nasal Cannula Oxygen Delivery Method [3] Nasal Cannula Oxygen Delivery Method [2] Nasal Cannula Oxygen Delivery Method [1 ( Room Air Initial Baseline)] Oxygen Delivery Method Room Air Weight: 88.2 kg Body Mass Index (BMI) 30.4 Intake and Output for Last 24 Hours 10/20/17 10/21/17 10/22/17 23:59 23:59 23:59 Intake Total 2075 / 2075 4348 / 4348 3787 / 3787 Output Total 1290 / 1290 1210 / 1210 1460 / 1460 Balance 785 / 785 3138 / 3138 2327 / 2327 Laboratory Tests Past 24 Hrs 10/22/17 10/22/17 05:34 05:34 WBC 5.0 RBC 4.03 L Hgb 12.3 L Hct 37.1 L MCV 92.1 MCH 30.5 MCHC 33.2 RDW 14.0 RDW Differential 46.7 H Plt Count 193 MPV 9.3 Immature Gran % (Auto) 0.200 Neut % (Auto) 77.6 H Lymph % (Auto) 12.5 L Barnwell % (Auto) 7.3 Eos % (Auto) 2.2 Baso % (Auto) 0.2 Absolute Neuts (auto) 3.8 Absolute Lymphs (auto) 0.62 L Total Counted Not Reportable Sodium 143 Potassium 3.6 Chloride 108 H Carbon Dioxide 27.0 Anion Gap 8 BUN 12 Creatinine 1.08 Estim Creat Clear Calc 73.10 Est GFR (MDRD) Af Amer 91 Est GFR (MDRD) Non-Af 76 BUN/Creatinine Ratio 11.1 Glucose 85 Calcium 8.1 L Medical Necessity - Tobacco Use Smoking Status: Light Smoker (<10/day) Tobacco Use: Cigars Assessment/Plan All Active Problems Diverticulitis (Acute) Diverticulitis large intestine (Acute) recurrent diverticulitis with pericolonic abscess/phlegmon-no signs of obstructive pattern. The patient admitted and started on IV antibiotics and bowel rest. the patient underwent percutaneous drainage yesterday with scant output from the drain. Overall, the patient doing well, tolerating liquid diet and actually afebrile with normal white blood cell count. He would like to be discharged home. I am comfortable with him being discharged home with plans to follow-up and obtain a CT scan tomorrow at which point within follow-up my office on .. I discussed with the patient the fact that it with multiple courses of relatively, diverticulitis, we should really consider resection after this event. Hopefully, he will follow conservative management with IV antibiotics, bowel rest, plus or minus possible percutaneous drainage at which point we'll not have to proceed with urgent resection. We Both hopes that this CT drainage will convert from a more complicated to a simpler diverticulitis. Otherwise, he will likely require urgent exploration, this would be an open procedure and might result in a resection with temporary ostomy.
== END 2017-10-22 13:06 | disposition home or self-care (01) | DRG 392 ==
LOC: ED 03:31 → MS3 05:02
PROVIDERS: Internal Medicine; Admitting Provider Internal Medicine; Emergency Provider Emergency Medicine; Visit Provider Internal Medicine
DX: K57.20 Diverticulitis of large intestine with perforation and abscess without bleeding (principal); I10 Essential (primary) hypertension; I25.10 Atherosclerotic heart disease of native coronary artery without angina pectoris; Z79.899 Other long term (current) drug therapy; F17.200 Nicotine dependence, unspecified, uncomplicated; Z87.74 Personal history of (corrected) congenital malformations of heart and circulatory system; M10.9 Gout, unspecified
CPT/HCPCS: 20501; 36415; 74177; 77012; 80048; 80076; 81001; 83036; 83605; 83690; 83735; 84100; 85025; 85610; 85730; 87086; 97802; 99156; 99157; 99282; 99406; J7030; J7040; J7120; Q9967; A4216; J0744; J2405; J3490

== ENCOUNTER → 2017-10-23 10:33 | Outpatient (CLI) | payer OTHER, SELFPAY ==
--- NOTE | 2017-10-23 10:37 | CT_ITS ---
STUDY: CT ABDOMEN AND PELVIS WITH CONTRAST REASON FOR EXAM: Male, 56 years old. Follow-up of the perisigmoid abscess. RADIATION DOSAGE (If Supplied By Facility): CTDIvol = ( 17.80 ) mGy, DLP = ( 1073.58 ) mGycm TECHNIQUE: Transaxial images were obtained from the dome of the diaphragm to the symphysis pubis with oral contrast. 100ML ml of Isovue 300 contrast was administered. Sagittal and coronal images were reconstructed. Individualized dose optimization techniques were used for this CT. COMPARISON: Comparison is made with prior study dated October 20, 2017. FINDINGS: The visualized lung bases are unremarkable. Coronary artery calcification. There is decreased attenuation of the liver consistent with steatosis. Normal gallbladder and extrahepatic biliary system. Normal spleen. Normal pancreas. Normal bilateral adrenal glands. Normal right kidney. Normal left kidney. Normal visualized stomach. Normal small intestine. A drainage catheter is seen within the mesenteric side of the sigmoid mesentery adjacent to the area of the inflammatory changes. The inflammatory changes at that site have improved. Residual evidence of thickening of the sigmoid colon and increased markings in the surrounding fat suggestive of a acute diverticulitis persist. The appendix is visualized and appears normal. Normal abdominal aorta. Normal inferior vena cava. Normal retroperitoneum. The bladder is partially empty. There is diffuse thickening of the bladder wall. Normal abdominal wall. Normal osseous structures. CT/Abdomen/Pelvis WITH Contrast IMPRESSION: Improvement in the appearance of the acute sigmoid diverticulitis and the surrounding inflammatory response. Electronically Signed: Andrew Gonzalez MD at 11:18 EDT Tel [phone], Service support ,
== END ==
LOC: CT 10:35
PROVIDERS: Visit Provider Surgery
DX: R52 Pain, unspecified (principal)
CPT/HCPCS: 74177; Q9967

== ENCOUNTER 2018-03-07 10:59 | Inpatient (IN) | payer OTHER, SELFPAY ==
[2018-03-05 08:12] VITALS: BP 141/91; PULSE 70; RESP 16; TEMP 37; O2SAT 98; BMI 29.7
[2018-03-05 09:28] LABS: Hematocrit 42.7 % (40-54); Hemoglobin 14.6 g/dl (13.0-16.5); Mean Corp Hgb Conc 34.2 g/gl (32-36); Mean Corpuscular Hgb 31.5 pg (27.0-32.0); Mean Corpuscular Volume 92.2 fL (80-94); Mean Platelet Vol. 9.7 fl (6.2-12.0); Platelet Count 189 K/mm3 (150-450); RBC Distribution Width CV 13.9 % (11.6-14.6); RBC Distribution Width SD 46.2 fl (35.1-43.9); Red Blood Count 4.63 M/mm3 (4.6-6.2)
[2018-03-05 09:30] LABS: Anion Gap 7 (5-15); BUN 24 mg/dL (7-18); BUN/Creat Ratio 19.2 RATIO (10-20); Calcium,Total 8.7 mg/dL (8.5-10.1); Chloride 107 mmol/L (98-107); Creatinine, Serum 1.25 mg/dL (0.70-1.30); EST Glomerular Filtration Rate 64 mL/min (>60); Est Glom Filt Rate - Afr Amer 77 mL/min (>60); Glucose 143 mg/dL (74-106); Potassium 3.9 mmol/L (3.5-5.1); Sodium Level 142 mmol/L (136-145)
[2018-03-05 10:05] LABS: Scan Indicated on CBC? Y/N NO
[2018-03-07] VITALS (8 sets, daily range): BP systolic 110–127; BP diastolic 72–85; PULSE 69–75; RESP 14–20; TEMP 36–37.5; O2SAT 95–100; BMI 29.7; BMI 28.8
[2018-03-07] MEDS: Acetaminophen 500 MG Tablet 1000 MG PO (12:52)
[2018-03-07] MEDS: Gabapentin 600 MG Tablet PO (12:52)
[2018-03-07 13:55] LABS: Bedside Glucose 137 mg/dL (70-110)
[2018-03-07] MEDS: Bupivacaine Mpf 0.5% 30 ML VIAL ×2 (14:17→18:48)
--- NOTE | 2018-03-07 19:08 | PCM.OPRPT ---
Report of Operation Date of Procedure: 03/07/18 Pre-Operative Diagnosis: recurrent diverticulitis Post-Operative Diagnosis: recurrent diverticulitis Surgery/Procedure Performed:: laparoscopic lysis of adhesions, laparoscopic low anterior resection with 29CEEA stapled anastomosis, laparoscopic appendectomy livestock yard supervisor: Isaura Caicedo livestock yard supervisor: Shirley Magaña Type of Anesthesia:: General Anesthesiologist: Graham Larson - ASA3 Specimen's removed: sigmoid colon, 2 donuts, appendix Drains: vieyra - 120 Estimated Blood Loss (mL): 50 Fluids Replaced: 2800 Description of Procedure: The patient was brought to the operating suite. Sign in was performed verifying patient, site, procedure, position, and DVT prophylaxis with SCDs. Patient received Cefotetan 2gm. Preoperative bowel prep of mechanical and antibiotic comprised of GoLYTELY and then neomycin and Flagyl 1 g 3 doses evening before was given. Following induction of general anesthetic, the patient was placed in a modified lithotomy position and care being taken to or by pressure points in the legs and arms. An upper body strap was placed and a upper body warmer was placed. A Vieyra catheter was placed. A rectal washout was performed with dilute Betadine solution. The patient?s abdomen and perineal area were then prepped and draped in the usual fashion. Timeout was performed verifying patient, site, position. Local anesthetic was injected below the umbilicus. Incision made and dissection carried down to the umbilical root fascia. 2 stay sutures were placed. Incision made in the fascia, the peritoneum entered under direct visualization. A 10 mm Rivera trocar was inserted and secured with the stay sutures. Pneumoperitoneum to 15 mmHg was insufflated. 2 5mm ports were placed in the lower midline and later in the left paramedian position and a 10/12 port were placed in the right lower quadrant inferior laterally. Adhesions were taken down using Harmonic scalpel. Visual inspection revealed a normal-appearing liver with no significant abnormalities. The large bulky inflamed mid sigmoid colon was seen in the pelvis with adhesions to the left lower quadrant and anterior abdominal wall. These adhesions were taken down sharply and using the Harmonic scalpel. Once this was completed, mobilization the avascular plane was undertaken from the ascending colon down to the area of the mid sigmoid with care taken at mobilization of the level of the iliac vessels then further down to the left lateral rectal peritoneal reflection. Once this left-sided mobilization was undertaken, a window was made in to the bare area just proximal to the inferior mesenteric vessels As dissection was continued, the ANGEL branches were identified and ligated with 5 mm hemoclips and divided with the Harmonic scalpel. Once this was fully divided and surrounded with dissection carried down to the area posterior to the rectum, a 60 mm echelon stapler with a thick load was placed and fired to transect the rectum. A second load was required. The bowel did not easily make it to the pelvis, so therefore, mobilization splenic flexure using Harmonic Scalpel was completed with the colon being completely mobilized off to rectus fascia/left kidney. This allowed good reaching of the bowel to the pelvis without tension I performed an appendectomy dividing the mesoappendix with the Harmonic scalpel and the base of the appendix with the regular load stapler. The appendix was removed the right lower quadrant port site. With full dissection of the mesentery and full mobilization the colon, the umbilical incision was extended and a wound protector placed. The sigmoid colon were delivered through the wound protector. At this point at the planned transection point of the proximal sigmoid colon, the pericolonic were fully mobilized to the margin of the bowel using the harmonic scalpel. The bowel was transected family with a 10 blade scalpel. A 29 mm CEA circular stapler anvil was then placed in the descending colon region and a 2-0 Prolene pursestring suture was used to close the bowel around the anvil. At this point, I proceeded down to the rectum. Rigid proctoscopy was performed after flooding the pelvis with saline. Insufflation demonstrated no leak at the rectal staple line. The staple line was felt to be approximately 19 cm. Next the 29 CEA stapler was lubricated and placed through the rectum up to the staple line. The spike was then opened just anterior to the previous echelon stapler line and the anvil properly seated onto the stapler and brought down to mid gap. The stapler was fired released and withdrawn from the rectum. The proximal and distal doughnuts were noted to be intact. Repeat proctoscopy was again performed again with the pelvis being flooded with saline. Air left in the rectum with insufflation and there was no intra-abdominal leakage noted. The anastomosis was noted to be at 16 cm from the anal verge Gown and gloves were changed. Pneumoperitoneum was released and the umbilical incision was closed with running 0 PDS sutures with the 2 sutures meeting and closed just below the umbilicus. Pneumoperitoneum was reestablished. The right lower quadrant fascial defect was closed with a running 0 PDS suture. Visual inspection revealed no material adhered to the midline closure. The 5mm ports were removed under direct visualization with no signs of bleeding. Pneumoperitoneum was released. Right lower quadrant fascial suture was secured. Skin was closed with interrupted and running 4-0 Monocryl subcuticular sutures. Steri-Strips and bandages were applied. - Admit VTE Documentation VTE Present on Admission: No VTE Mechan Device Prophylaxis: SCD's VTE Pharm Prophylaxis ordered?: Yes
--- NOTE | 2018-03-07 21:10 | NURSING ---
Pt arrived to floor very drowsy. When asked to tell me his name his speech was slurred. His is present at the bedside and states that this is not his usual speech. I was advised in report that pt had a difficult time waking up postop. SLURRY BLENDER present in room with me during assessment. Pt is able to answer questions appropriately (although there is some hesitancy and slurred speech), tongue is midline, pupils are equal and reactive, extremity strength is equal for all [address] Larson was contacted by PACU nurse and they are going to come see the pt as a precaution.
--- NOTE | 2018-03-07 21:33 | NURSING ---
Still awaiting visit from Dr. Larson.
--- NOTE | 2018-03-07 21:35 | NURSING ---
Dr. Larson here evaluating pt and speaking with . CAR PUSHER also present. Pt's has indicated that pt has a hx of TIAs.
--- NOTE | 2018-03-07 21:50 | NURSING ---
Dr. Larson is going to advise Dr. Boyd of the current situation. Enma STEPHENS and I believe that his speech is becoming clearer.
--- NOTE | 2018-03-07 21:52 | NURSING ---
Dr. Larson reports that he spoke with Dr. Boyd and he will see the pt in the morning. They don't believe that anything further needs done at this time. Will continue to monitor.
[2018-03-07] MEDS: Lactated Ringers 1,000 ML 40 ML IV (23:22)
[2018-03-08] MEDS: Ketorolac 15 MG/ML Vial IV ×4 (00:49→18:02)
[2018-03-08] MEDS: Acetaminophen 500 MG Tablet 1000 MG PO ×4 (00:49→18:01)
[2018-03-08 00:55] VITALS: BP 116/65; PULSE 77; RESP 16; TEMP 37.1; O2SAT 97
--- NOTE | 2018-03-08 01:02 | NUR.TO.PHY ---
pt too drowsy when stood up at bedside. pt unsteady and couldn't keep eyes open.
[2018-03-08 04:00] VITALS: BP 119/70; PULSE 67; RESP 16; TEMP 37.1; O2SAT 98
[2018-03-08] MEDS: 0.9% NaCl Peripheral Flush Adult/Peds IV ×3 (06:07→18:02)
[2018-03-08 07:27] VITALS: O2SAT 97
[2018-03-08 08:42] LABS: Anion Gap 7 (5-15); BUN 16 mg/dL (7-18); BUN/Creat Ratio 11.3 RATIO (10-20); Chloride 105 mmol/L (98-107); Creatinine, Serum 1.41 mg/dL (0.70-1.30); EST Glomerular Filtration Rate 55 mL/min (>60); Est Glom Filt Rate - Afr Amer 67 mL/min (>60); Glucose 102 mg/dL (74-106); Sodium Level 141 mmol/L (136-145)
[2018-03-08 08:43] LABS: Hematocrit 36.9 % (40-54); Hemoglobin 12.2 g/dl (13.0-16.5); Mean Corp Hgb Conc 33.1 g/gl (32-36); Mean Corpuscular Volume 93.9 fL (80-94); Mean Platelet Vol. 10.1 fl (6.2-12.0); Platelet Count 161 K/mm3 (150-450); RBC Distribution Width SD 48.1 fl (35.1-43.9); Red Blood Count 3.93 M/mm3 (4.6-6.2); White Blood Count 5.4 K/mm3 (4.4-11.0)
[2018-03-08 08:47] LABS: Scan Indicated on CBC? Y/N NO
--- NOTE | 2018-03-08 08:49 | PCM.PN.SRG ---
Subjective: hear some bowel gurgling, minimal pain - Physical Exam General: Alert, Oriented x3 Lungs: Clear to auscultation, Normal air movement Cardiovascular: Regular rate, No murmurs Abdomen: Bowel Sounds Present, Soft, Non Tender, Hypoactive Bowel Sounds Vital Signs Temp Pulse Resp BP Pulse Ox 98.7 F 67 16 119/70 97 03/08/18 04:00 03/08/18 04:00 03/08/18 04:00 03/08/18 04:00 03/08/18 07:27 Oxygen Flow Rate (L/min) 2 Oxygen Delivery Method Nasal Cannula Weight: 88.592 kg Body Mass Index (BMI) 28.8 Intake and Output for Last 24 Hours 03/06/18 03/07/18 03/08/18 23:59 23:59 23:59 Intake Total 3076.4 / 3076.4 653 / 653 Output Total 695 / 695 650 / 650 Balance 2381.4 / 2381.4 3 / 3 Laboratory Tests Past 24 Hrs 03/08/18 03/08/18 07:48 07:48 WBC 5.4 RBC 3.93 L Hgb 12.2 L Hct 36.9 L MCV 93.9 MCH 31.0 MCHC 33.1 RDW 14.0 RDW Differential 48.1 H Plt Count 161 MPV 10.1 Sodium 141 Potassium 4.0 Chloride 105 Carbon Dioxide 29.0 Anion Gap 7 BUN 16 Creatinine 1.41 H Estim Creat Clear Calc 59.20 Est GFR (MDRD) Af Amer 67 Est GFR (MDRD) Non-Af 55 L BUN/Creatinine Ratio 11.3 Glucose 102 Calcium 8.0 L POC Glucose 03/07/18 12:49 POC Glucose 137 H Medical Necessity - Tobacco Use Smoking Status: Former smoker Tobacco Use: Cigars Assessment/Plan All Active Problems Diverticulitis (Acute) Diverticulitis large intestine (Acute) chronic recurrent diverticulitis postoperative day #1 status post laparoscopic lysis of adhesions, laparoscopic low anterior resection with circular stapled anastomosis and appendectomy. Patient with prolonged somnolence post anesthesia but doing well this morning. Neurologically intact and alert and oriented. Few bowel sounds noted. We will continue ERAS protocol with clear liquids and minimal IV fluids. Will DC Herndon catheter. Encourage incentive spirometry and ambulation.
[2018-03-08 08:50] VITALS: BP 118/71; PULSE 70; RESP 18; TEMP 37.2; O2SAT 95
[2018-03-08] MEDS: Enoxaparin 40 MG/0.4 ML Syringe SC (08:52)
[2018-03-08] MEDS: Allopurinol 300 MG Tablet PO (08:53)
[2018-03-08] MEDS: Aspirin 81 MG TAB.CHEW PO (08:57)
--- NOTE | 2018-03-08 09:15 | NURSING ---
This nurse took vieyra out. Will monitor output. Up to chair with assistance.
--- NOTE | 2018-03-08 12:20 | CM.UR ---
See attached head bone grinder. Met face to face with patient. Discharge plan: Home with no needs anticipating. Aixa Valencia RN, CCM.
[2018-03-08 15:45] VITALS: BP 130/83; PULSE 69; RESP 16; TEMP 37.3; O2SAT 94
--- NOTE | 2018-03-08 17:57 | NURSING ---
This nurse aware of Vital Signs taken at 1545 by Feliz Gamez RN
--- NOTE | 2018-03-08 18:15 | NURSING ---
Has walked in the halls at least 6-7 times today. Sitting on edge of bed using incentive spirometer.
[2018-03-08 22:45] VITALS: BP 132/90; PULSE 73; RESP 16; TEMP 37.1; O2SAT 94
[2018-03-09] MEDS: Ketorolac 15 MG/ML Vial IV ×2 (00:33→06:55)
[2018-03-09] MEDS: 0.9% NaCl Peripheral Flush Adult/Peds IV ×2 (00:40→06:55)
[2018-03-09] MEDS: Acetaminophen 500 MG Tablet 1000 MG PO ×4 (00:58→21:52)
[2018-03-09 04:42] VITALS: BP 145/87; PULSE 68; RESP 16; TEMP 37.1; O2SAT 96
[2018-03-09 07:12] VITALS: O2SAT 95
[2018-03-09 08:15] VITALS: BP 165/95; PULSE 70; RESP 16; TEMP 36.7; O2SAT 95
[2018-03-09] MEDS: Allopurinol 300 MG Tablet PO (08:15)
[2018-03-09] MEDS: Aspirin 81 MG TAB.CHEW PO (08:17)
[2018-03-09] MEDS: Enoxaparin 40 MG/0.4 ML Syringe SC (08:17)
--- NOTE | 2018-03-09 10:04 | PCM.PN.SRG ---
Subjective: past gas yesterday afternoon and significant flatus overnight - Physical Exam General: Alert, Oriented x3, Cooperative Lungs: Clear to auscultation, Normal air movement Cardiovascular: Regular rate, No murmurs Abdomen: Bowel Sounds Present, Soft, Non Tender Vital Signs Temp Pulse Resp BP Pulse Ox 98.1 F 70 16 165/95 H 95 03/09/18 08:15 03/09/18 08:15 03/09/18 08:15 03/09/18 08:15 03/09/18 08:15 Oxygen Flow Rate (L/min) 2 Oxygen Delivery Method Room Air Weight: 88.592 kg Body Mass Index (BMI) 28.8 Intake and Output for Last 24 Hours 03/07/18 03/08/18 03/09/18 23:59 23:59 23:59 Intake Total 3076.4 / 3076.4 2973 / 2973 904 / 904 Output Total 695 / 695 1775 / 1775 1100 / 1100 Balance 2381.4 / 2381.4 1198 / 1198 -196 / -196 Medical Necessity - Tobacco Use Smoking Status: Former smoker Tobacco Use: Cigars Assessment/Plan All Active Problems Diverticulitis (Acute) Diverticulitis large intestine (Acute) chronic recurrent diverticulitis postoperative day #2 status post laparoscopic lysis of adhesions, laparoscopic low anterior resection with circular stapled anastomosis and appendectomy. Patient with prolonged somnolence post anesthesia but doing well this morning. Neurologically intact and alert and oriented. improved bowel sounds noted. Will advance to low residue diet and Hep-Lock IV fluids Will DC Herndon catheter. Encourage incentive spirometry and ambulation.
[2018-03-09 14:35] VITALS: BP 153/92; PULSE 74; RESP 18; TEMP 36.6; O2SAT 93
[2018-03-09 21:55] VITALS: BP 154/89; PULSE 95; RESP 16; TEMP 37.2; O2SAT 95
--- NOTE | 2018-03-10 | COLBX_PTH ---
PATIENT: SERINA VUONG LOC: [facility]3 U#:[id number] AGE/SX: 57/M ROOM: [facility]308 RE03/07/[address]: Dr. Eron Boyd MD : 1960 BED: 1 DIS: 03/10/2018 SPEC #: [id number] RECD: 03/10/18 14:30 STATUS: GILSON REQ #: [id number] ADINA: 03/10/18 00:[address]: Eron Boyd DEPT: SURGICAL PATHOLOGY RECD BY: Konstantin Bills ENTERED: 03/10/18 14:31 SP TYPE: COLON BX OT DR: Dr. Shaina Wills DO Tissues: A - Sigmoid colon biopsy B - Colon Donuts C - Colon Donuts D - APPENDIX (INCIDENTAL) Procedures: Surgery Specimen Level II Surgery Specimen Level III Surgery Specimen Level IV HEADER OPERATION: Laparoscopic sigmoid colectomy, incidental appendectomy, ERAS PRE-OP DIAGNOSIS: Diverticulitis TISSUE SUBMITTED: A. Sigmoid colon, B. Proximal donut, C. Distal Annette salomon Appendix MICROSCOPIC DIAGNOSIS A. Sigmoid colon, segmental colectomy: Diverticular disease of colon. Margins of excision with no pathologic change. 3 out of 3 benign lymph nodes. B. Proximal mucosal donut, excision: No pathologic diagnosis. C. Distal mucosal donut, excision. No pathologic diagnosis. D. Appendix, appendectomy: Fibrous obliteration of distal appendiceal lumen. No evidence of inflammation. HARRISON:yaritza 03/11/18 MICROSCOPIC DESCRIPTION Slides are reviewed. GROSS DESCRIPTION A. Received in fixative is one container labeled with the patient's name and designated sigmoid colon. The specimen consists of a previously partially opened segmental colon with attached adipose tissue measuring 16 cm in length. One dissection margin and a stapled other resection margin is open. No mucosal lesion is identified. Sections reveal multiple diverticula. Many of the diverticula are filled with mucoid material. The lumen contains small amount of hemorrhagic material and fecal material. A few ruptured diverticula are noted. Section of pericolonic adipose tissue do not reveal any obviously enlarged lymph node. Slab Lifting Engineer sections are submitted in 6 cassettes as follows: 1 - staple resection margin inked black, 2 to 4 - diverticula, 5 to 6 - pericolonic adipose tissue. B. Received is one container labeled with the patient name and designated proximal donut. The specimen consists of a donut shaped piece of colonic tissue that measures 2 x 2 x 1 cm. Multiple sutures are noted. Slab Lifting Engineer sections are submitted in 1 cassette. The specimen is totally submitted in one cassette. C: Received is one container labeled with the patient name and designated distal donut. The specimen consists of a donut shaped piece of colonic tissue measuring 2 x 1.5 x 1 cm. The mucosa is congested. The entire specimen is submitted in one cassette. D. Received is one container labeled with the patient name and designated appendix. The sections reveal unremarkable cut surface. No fecalith is identified. The entire specimen is submitted in one cassette. LIZ:yaritza 03/11/18 TC: 3 CPT: 89017, 36566 x2, [id number]
[2018-03-10] MEDS: Acetaminophen 500 MG Tablet 1000 MG PO (02:38)
[2018-03-10 02:40] VITALS: BP 163/105; PULSE 68; RESP 18; TEMP 36.8; O2SAT 95
[2018-03-10 02:49] VITALS: O2SAT 96
[2018-03-10 04:08] VITALS: BP 154/100; PULSE 69; RESP 16; O2SAT 96
--- NOTE | 2018-03-10 04:09 | NURSING ---
Rechecked pts bp at this time. 154/100. States normally takes amlodipine and cardizem at home, has not been getting here. Checked home med list and those meds listed, not on MAR. Pt asymptomatic with HTN. Spoke with Cary STEPHENSsmelter charger nurse and she states Dr Boyd here at 0600 and ok to speak to him then regarding bp. Pt does not have hospitalist coverage.
--- NOTE | 2018-03-10 06:51 | DCINST_ITS ---
Discharge Diet: Light diet - advance as tolerated - If you have questions about your diet instructions, please talk to your doctor. Discharge Activity: May Not Drive - for 1 week or while taking narcotic pain meds. May shower in (days): 1 Lifting Restrictions: 10 pounds Call your doctor if your incision/area has: Continuous Slow Oozing, Sudden Increased Bleeding, Increased Pain/ Swelling, Increased Redness, Foul Smelling Discharge Call your doctor if you observe: Fever of 101 or Higher Suture Line Care: Avoid Pulling/Pushing, Avoid Pinching/Bending Additional Dressing/Incision Instructions:: Change or remove dressing in 4 days. Leave steri-strips in place for 1 week. Allergies/Adverse Reactions: Allergies chlorhexidine Allergy (Verified 03/05/18 08:08) Unknown atorvastatin Adverse Reaction (Verified 03/05/18 08:40) Other flushing Medications to take at Discharge Allopurinol [Zyloprim] 300 mg PO DAILY 04/20/15 Amlodipine [Norvasc] 2.5 mg PO DAILY 04/20/15 Aspirin [Aspirin, Baby] 81 mg PO DAILY@0800 04/20/15 Diltiazem HCl [Diltiazem ER] 120 mg PO DAILY 10/08/17 Acetaminophen [Tylenol] 1,000 mg PO Q6 tablet 03/10/18 Primary Care Physician: Shaina Wills DO [Primary Care Provider] - Test Results: Test results from this visit will be discussed in further detail at your follow- up appointment, if applicable. Please Follow Up With: Eron Byod MD - [phone] When: next saturday
[2018-03-10 08:16] VITALS: BP 150/96; PULSE 78; RESP 18; TEMP 36.7; O2SAT 94
[2018-03-10] MEDS: dilTIAZem CD 120 MG Capsule PO (08:17)
[2018-03-10] MEDS: Allopurinol 300 MG Tablet PO (08:17)
[2018-03-10] MEDS: amLODIPine 2.5 MG Tablet PO (08:17)
[2018-03-10] MEDS: Aspirin 81 MG TAB.CHEW PO (08:20)
[2018-03-10 08:26] VITALS: BP 150/96
--- NOTE | 2018-03-14 12:35 | DS.PCM_ITS ---
Discharge Date and Diagnosis Date of Admission: 03/07/18 Date of Discharge: 03/10/18 - Primary Discharge Diagnosis recurring diverticulitis - Secondary Discharge Diagnosis Chronic Problems History of heart surgery (Chronic) Hospital Course and Treatment Operations: colectomy - low anterior resection-laparoscopic Summary of Care Provided: The patient is a 57 year old M with recurring complicated diverticulitis requiring percutaneous drainage and multiple episodes. Patient returns for elective planned laparoscopic low anterior resection. Patient did well postoperatively had return of bowel function postoperatively 2 and was able to be discharged to home on a liquid advancing to soft diet on postoperative day 3 - Physical Exam General: Alert, Oriented x3 Lungs: Clear to auscultation, Normal air movement Cardiovascular: Regular rate, No murmurs Abdomen: Bowel Sounds Present, Soft, Non Tender Vital Signs Temp Pulse Resp BP Pulse Ox 98.0 F 78 18 150/96 H 94 03/10/18 08:16 03/10/18 08:16 03/10/18 08:16 03/10/18 08:26 03/10/18 08:16 Oxygen Flow Rate (L/min) 2 Oxygen Delivery Method Room Air Weight: 88.592 kg Body Mass Index (BMI) 28.8 Discharge Diet: Light diet - advance as tolerated - If you have questions about your diet instructions, please talk to your doctor. Discharge Activity: May Not Drive - for 1 week or while taking narcotic pain m eds. May shower in (days): 1 Call your doctor if your incision/area has: Continuous Slow Oozing, Sudden Increased Bleeding, Increased Pain/ Swelling, Increased Redness, Foul Smelling Discharge Call your doctor if you observe: Fever of 101 or Higher Suture Line Care: Avoid Pulling/Pushing, Avoid Pinching/Bending Additional Dressing/Incision Instructions:: Change or remove dressing in 4 days. Leave steri-strips in place for 1 week. Home Medications: Medications to take at Discharge Allopurinol [Zyloprim] 300 mg PO DAILY 04/20/15 Amlodipine [Norvasc] 2.5 mg PO DAILY 04/20/15 Aspirin [Aspirin, Baby] 81 mg PO DAILY@0800 04/20/15 Diltiazem HCl [Diltiazem ER] 120 mg PO DAILY 10/08/17 Acetaminophen [Tylenol] 1,000 mg PO Q6 tablet 03/10/18 Primary Care Physician: Shaina Wills DO [Primary Care Provider] - Please Follow Up With: Eron Boyd MD - [phone] When: next saturday Medical Necessity - Tobacco Use Smoking Status: Former smoker Tobacco Use: Cigars Meaningful Use Info Meaningful Use Diagnoses (Choose all that apply): None applicable
== END 2018-03-10 08:30 | disposition home or self-care (01) | DRG 331 ==
LOC: ACINP 11:00 → MS3 03-11 07:09
PROVIDERS: Anesthesiology; Admitting Provider Surgery; Family Provider Internal Medicine; PCP Internal Medicine; Referring Provider Surgery; Visit Provider Surgery
PROC: 0DBN4ZZ Excision of Sigmoid Colon, Percutaneous Endoscopic Approach (ICD-10-PCS; CPT 44204; principal; 2018-03-07 13:05)
DX: K57.32 Diverticulitis of large intestine without perforation or abscess without bleeding (principal); M10.9 Gout, unspecified; I10 Essential (primary) hypertension; Z87.74 Personal history of (corrected) congenital malformations of heart and circulatory system; Z87.891 Personal history of nicotine dependence
CPT/HCPCS: 36415; 80048; 82962; 85027; 88302; 88304; 88305; 94762; J7050; J7120; A4216; J0330; J3490

== ENCOUNTER → 2020-01-18 06:11 | Outpatient (CLI) | payer OTHER, SELFPAY ==
--- NOTE | 2020-01-18 06:16 | ECHOD_ITS ---
Reason For Study: Abn EKG Procedure This was a 2D Doppler, Color Flow transthoracic echocardiogram. Exam performed in department. Left Ventricle Normal LV size. Left ventricular systolic function is normal. The estimated ejection fraction is 55 %. Stage 1 diastolic dysfunction. No regional wall motion abnormalities noted. Right Ventricle Normal RV size. Normal systolic function. Atria Normal left atrium. Normal right atrium. Bubble contrast study negative for right to left interatrial shunt. Mitral Valve Normal mitral valve. Tricuspid Valve Normal tricuspid valve. Mild (1+) tricuspid valve insufficiency. Pulmonary artery systolic pressure is 24 mmHg. Aortic Valve Bicuspid aortic valve. Mild restriction of the aortic valve. Pulmonic Valve Normal pulmonic valve. Great Vessels Normal aortic root. The pulmonary artery is normal size. Normal inferior vena cava. Pericardium/Pleural No pericardial effusion. Medication Performed a rapid injection of agitated mix of 9 cc saline and 1cc air to assess for atrial septal defect. MMode/2D Measurements & Calculations LVIDd: 4.6 cm IVSd: 1.4 cm LVOT diam: 2.0 cm LVIDs: 2.8 cm LVPWd: 1.5 cm RVDd: 3.1 cm FS: 38.2 % LVOT area: 3.0 cm2 Ao root diam: 4.2 cm LAV(MOD-bp): 50.2 ml EDV(MOD-sp4): 101.4 ml LAV(MOD-bp) Indexed: 24.8 ml/m2 ESV(MOD-sp4): 44.5 ml LAV(MOD-sp2): 51.9 ml EF(MOD-sp4): 56.2 % LAV(MOD-sp4): 47.8 ml EDV(MOD-sp2): 65.5 ml SV(MOD-sp4): 57.0 ml SV(MOD-sp2): 22.4 ml EF(MOD-sp2): 34.2 % LA A4 area: 17.1 cm2 RA A4 area: 14.7 cm2 Doppler Measurements & Calculations MV E max leander: 40.1 cm/sec Lat Peak E' Leander: 8.5 cm/sec Med Peak E' Leander: 7.3 cm/sec MV A max leander: 65.4 cm/sec E/E' lat: 4.7 E/E' med: 5.5 MV E/A: 0.61 Ao V2 max: 148.8 cm/sec LV V1 max: 105.7 cm/sec SV(LVOT): 54.7 ml Ao max P.9 mmHg LV V1 max P.5 mmHg Ao V2 mean: 98.3 cm/sec LV V1 mean P.1 mmHg Ao mean P.3 mmHg LV V1 mean: 67.4 cm/sec Ao V2 VTI: 26.6 cm LV V1 VTI: 18.0 cm ANGIE(I,D): 2.1 cm2 ANGIE(V,D): 2.2 cm2 TR max leander: 228.1 cm/sec TR max P.8 mmHg Interpretation Summary Normal LV size. Left ventricular systolic function is normal. The estimated ejection fraction is 55 %. Stage 1 diastolic dysfunction. Bicuspid aortic valve. Ordering Physician: Shaina Wills Referring Physician: Shaina Wills Performed By: Jazlyn Wilson RDCS
--- NOTE | 2020-01-18 08:23 | STRESSREP_ITS ---
Stress Test Report Exercise myocardial perfusion stress test. 59-year-old man with a history of chest pain. Stress protocol: Resting EKG demonstrates normal sinus rhythm with a right bundle branch block rate of 59 bpm is noted resting blood pressures 166/90 mmHg. The patient exercised according to the regular Gopal protocol for a total duration of 9 hiram alton and 45 seconds. The maximum heart rate attained was 127 bpm which was 77% of maximum. Heart rate maximum workload was 11.3 metabolic equivalents. At rest there were no ST or T wave changes noted to suggest ischemia at peak exercise upsloping ST changes were noted with no meet the criteria for ischemia. The test was terminated due to attainment of target heart rate as well as dyspnea. The resting blood pressure was 166/90 with a peak blood pressure of 208/82 mmHg. Myocardial perfusion protocol. 10.8 mCi of technetium 99m sestamibi was injected at rest. Patient exercised according to regular Gopal protocol for 9 and three-quarter minutes at peak exercise 33.3 mCi of technetium 99m sestamibi was injected stress images were obtained stress and rest images were reconstructed and compared in the short axis vertical long horizontal long axis. Gated images were also obtained Perfusion SPECT analysis: Review of the stress images demonstrate normal uptake of tracer noted in all areas of myocardium the resting images similar demonstrate normal uptake of tracer noted in all areas of the myocardium no areas of reversibility are noted suggest ischemia no previous infarct is noted. Gated SPECT analysis: The gated ejection fraction is noted to be 62%. Conclusion: Exercise myocardial perfusion stress test with no evidence of ischemia at a high workload. Excellent functional aerobic capacity.
== END ==
PROVIDERS: PCP Internal Medicine; Referring Provider Internal Medicine; Visit Provider Internal Medicine
DX: R94.31 Abnormal electrocardiogram [ECG] [EKG] (principal); Z98.890 Other specified postprocedural states
CPT/HCPCS: 78452; 93017; 93306; A9500; A4216